=== PATIENT | female | born 1975 | race Caucasian/White ===

== ENCOUNTER 2018-04-06 14:22 | Emergency (ER) | payer OTHER, MEDICAID, SELFPAY ==
[2018-04-06 14:34] VITALS: BP 141/78; PULSE 79; RESP 18; TEMP 36.2; O2SAT 93; BMI 38.5
[2018-04-06] MEDS: predniSONE 20 MG TABLET 60 MG PO (15:11)
[2018-04-06] MEDS: diphenhydrAMINE 25 MG TABLET PO (15:12)
[2018-04-06 15:15] VITALS: PULSE 76; RESP 16; O2SAT 98
[2018-04-06] MEDS: ALBUTEROL 2.5 MG/3 ML NEB (ADULT) INH (15:15)
--- NOTE | 2018-04-06 15:16 | ED_ITS ---
HPI - Allergic Reaction General Chief complaint: Allergic Reaction Stated complaint: states body is on fire,itching,blood in stool Time Seen by Provider: 04/06/18 14:43 Source: patient Mode of arrival: ambulatory Limitations: no limitations History of Present Illness HPI narrative: Patient is a 42-year-old woman who presents with home severe pruritus. She does have a history of sensitive skin but it has been under control for the last 10 years or so. She went to visit [place] 5 days ago she feels like her skin has gotten worse she is in severe itching she has hives all over it is now spreading up to her neck. She denies anything new except possibly hair dye and nail [place]. It is mostly on her arms and throat. She denies hoarse voice no difficulty breathing although she now in the ED feels like she is more short of breath. He has been using her inhaler without relief. MD complaint: allergic reaction Onset (ago): day(s) Related Data Previous Rx's Medication Instructions Recorded hydroxyzine pamoate [Vistaril] 25 mg PO Q6-8H PRN #30 cap 04/06/18 prednisone 40 mg PO DAILY #8 tab 04/06/18 Allergies Allergy/AdvReac Type Severity Reaction Status Date / Time Sulfa (Sulfonamide Allergy Verified 04/06/18 14:34 Antibiotics) Review of Systems Review of Systems GENERAL: Denies chills, fatigue, malaise, fever, sweats, travel HEENT: Denies sinus pain, ear pain, sore throat, difficulty swallowing, neck pain RESPIRATORY: Denies dyspnea, cough, wheezing, hemoptysis, sputum. CARDIOVASCULAR: Denies chest pain, palpitations, orthopnea, edema GASTROINTESTINAL: Denies nausea, vomiting, abdominal pain, diarrhea, constipation, melena. : Denies dysuria, frequency, incontinence, hematuria, urinary retention, flank pain. MUSCULOSKELETAL: Denies weakness, joint pain, or bony pain SKIN: See HPI NEUROLOGIC: Denies weakness, dizziness, headache, numbness, change in speech, confusion PSYCHIATRIC: No concerning psychosocial issues. 12 point review of systems is negative except for those stated above and HPI PFSH Medical History Rash (Acute) Social History Smoking Status: Never smoker Exam Initial Vital Signs Initial Vital Signs: Vital Signs Temperature 97.1 F L 04/06/18 14:34 Pulse Rate 79 04/06/18 14:34 Respiratory Rate 18 04/06/18 14:34 Blood Pressure 141/78 H 04/06/18 14:34 Pulse Oximetry 93 04/06/18 14:34 GENERAL: Overweight female alert and oriented x3 it itching HEENT: Head atraumatic,EOMI, pupils reactive, face symmetric, no stridor no obvious lip or tongue swelling CARDIOVASCULAR: Regular rate and rhythm without murmurs, rubs or gallops. RESPIRATORY: Breath sounds equal bilaterally, no wheezes rales or rhonchi. ABDOMEN: Soft, nontender. Normoactive bowel sounds all 4 quadrants. No guarding or rebound. EXTREMITIES: Normal range of motion, no clubbing or edema. Neurovascularly intact NEUROLOGICAL: Alert and oriented x4. SKIN: Hives diffusely on abdomen and arms no vesicles no petechiae Course Orders Ordered: Discontinued Medications Albuterol (Ventolin) 2.5 mg INH NOW ONE Stop: 04/06/18 15:08 Last Admin: 04/06/18 15:15 Dose: 2.5 mg Diphenhydramine HCl (Benadryl) 25 mg PO NOW ONE Stop: 04/06/18 15:08 Last Admin: 04/06/18 15:12 Dose: 25 mg Prednisone (Deltasone) 60 mg PO NOW ONE Stop: 04/06/18 15:08 Last Admin: 04/06/18 15:11 Dose: 60 mg Vital Signs - 8 hr 04/06/18 14:34 04/06/18 15:15 04/06/18 16:03 Temperature 97.1 F L Pulse Rate 79 76 78 Respiratory Rate 18 16 Blood Pressure 141/78 H Blood Pressure [Right Arm] 116/74 Pulse Oximetry 93 98 98 MDM - Allergic Reaction Lab Data Point of Care Testing Test Results Negative Urine Dip Bedside Urine Glucose Negative Bedside Urine Bilirubin - Negative Bedside Urine Ketone - Negative Urine Specific [place] 1.025 Bedside Urine Occult Blood +/- Bedside Urine pH 6.0 Bedside Urine Protein - Negative Bedside Urine Urobilinogen - Negative Bedside Urine Nitrite - Negative Bedside Urine Leukocytes - Negative Esterase Discharge Plan Departure Patient Disposition: Home Clinical Impression: Allergic reaction Discharge Date/Time: 04/06/18 16:14 Interventions: ED Discharge Assessment Last Done: 04/06/18 16:10 Instructions: DI for General Allergic Reactions Activity Restrictions/Additional Instructions: *You have been diagnosed with allergic reaction *Continue to take medications as directed Prednisone 40 mg once a day for 5 days Vistaril 1-2 tablets every 6 hr if needed for itching Albuterol with spacer every 4-6 hours if needed for difficulty breathing or wheezing *Follow up with your primary care provider in 2-3 days *Return to ER if you should have inability to swallow, worsening rash, or any new, worsening or concerning symptoms Prescriptions: New prednisone 20 mg tablet 40 mg PO DAILY Qty: 8 RF: 0 hydroxyzine pamoate [Vistaril] 25 mg capsule 25 mg PO Q6-8H PRN (Reason: itching) Qty: 30 RF: 0
[2018-04-06 16:03] VITALS: BP 116/74; PULSE 78; O2SAT 98
== END 2018-04-06 16:14 | disposition home or self-care (01) ==
PROVIDERS: Emergency Provider Emergency Medicine
DX: T78.40XA Allergy, unspecified, initial encounter (principal)
CPT/HCPCS: 81003; 81025; 94640; 99282; 99283; J7613

== ENCOUNTER 2019-11-21 23:38 | Emergency (ER) | payer OTHER, MEDICAID, SELFPAY ==
[2019-11-21 23:42] VITALS: BP 123/85; PULSE 82; RESP 18; TEMP 36.8; O2SAT 100
--- NOTE | 2019-11-21 23:49 | ED.ANIMALBIT ---
HPI - Animal Bite General Chief Complaint: Animal Bite Stated Complaint: dog bite left thumb Time Seen by Provider: 11/21/19 23:40 Source: patient Mode of arrival: Ambulatory Limitations: no limitations History of Present Illness HPI narrative: 44F non smoker without contributory medical history presents with a dog bite to her left thumb. Her fully immunized dog has been behaving poorly since she adopted another pup and tonight it bit her on the thumb. She has minimal bleeding and full range of motion. She does have a minimal amount of numbness to to tip of her thumb. She will need a tetanus update. She is otherwise fine and well. MD complaint: animal bite Onset (ago): hour(s) Animal: dog Description of animal: household pet Mechanism: bite Location - Extremities: Left: hand Pain description: sharp Context: provoked Associated symptoms: numbness Treatments prior to arrival: wound dressing(s) Related Data Patient tetanus UTD: No Previous Rx's Medication Instructions Recorded hydroxyzine pamoate [Vistaril] 25 mg PO Q6-8H PRN #30 cap 04/06/18 prednisone 40 mg PO DAILY #8 tab 04/06/18 amoxicillin-pot clavulanate 1 tab PO BID #20 tab 11/22/19 [Augmentin] Allergies Allergy/AdvReac Type Severity Reaction Status Date / Time Sulfa (Sulfonamide Allergy Verified 04/06/18 14:34 Antibiotics) Review of Systems Constitutional Constitutional: Denies chills, Denies fatigue, Denies fever(s), Denies frequent falls, Denies lethargy and Denies weakness Eyes Eyes: Denies change in vision, Denies eye discharge, Denies irritation and Denies loss of vision ENT Ears, Nose, Mouth, and Throat: Denies change in voice, Denies dizziness, Denies neck pain, Denies sore throat and Denies throat swelling Cardiovascular Cardiovascular: Denies chest pain, Denies irregular heart rhythm, Denies lightheadedness, Denies palpitations, Denies dyspnea, Denies dyspnea on exertion and Denies orthopnea Respiratory Respiratory: Denies cough, Denies dyspnea, Denies dyspnea on exertion and Denies wheezing Gastrointestinal Gastrointestinal: Denies abdominal pain, Denies change in bowel habits, Denies diarrhea, Denies nausea and Denies vomiting Genitourinary Genitourinary: Denies hematuria, Denies flank pain, Denies urinary incontinence and Denies urinary urgency Musculoskeletal Musculoskeletal: Denies back pain, Denies muscle weakness, Denies neck pain, Denies numbness and Denies tingling Integumentary/Breasts Skin/Breast: Denies pruritus, Denies erythema, Denies rash and Reports wounds Neurologic Neurologic: Denies behavioral changes, Denies confusion, Denies dizziness, Denies frequent falls, Denies loss of vision, Denies numbness, Denies tingling and Denies weakness Psychiatric Psychiatric: Denies anxiety, Denies behavioral changes, Denies confusion, Denies depression, Denies homicidal ideation and Denies suicidal ideation Endocrine Endocrine: Denies fatigue, Denies flushing and Denies palpitations Hematologic/Lymphatic Hematologic/Lymphatic: Denies easy bruising Allergic/Immunologic Allergic/Immunologic: Denies urticaria, Denies throat swelling and Denies wheezing Patient History Medical History Rash (Acute) Social History Smoking Status: Never smoker Smoking Status: Never smoker alcohol intake frequency: 0-2 drinks per day Substance Use Type: does not use Exam Narrative Exam Narrative: GEN: AOx3 and in mild distress EYES: Pupils are equal, round, and reactive to light and accommodation. Extraoccular muscles are intact bilaterally. There is no subconjunctival hemorrhage or exudate. CHEST: Lungs are clear to auscultation bilaterally and free of wheezes, rales, or rhonchi. Heart rate is regular rhythm, there are no murmurs, clicks, rubs, or gallops. There is no chest wall tenderness. ABD: Abdomen is soft and nontender. There is no guarding or rebound. Bowel sounds are normal in all 4 quadrants. There is no mass or organomegaly. EXT: small puncture on volar side of Left thumb with no active bleeding. Full strength, no active bleeding. No foreign body. No nail / nailbed involvement. SKIN: Warm, pink, and dry. No erythema or rash Initial Vital Signs Initial Vital Signs: Vital Signs Temperature 98.3 F 11/21/19 23:42 Pulse Rate 82 11/21/19 23:42 Respiratory Rate 18 11/21/19 23:42 Blood Pressure 123/85 11/21/19 23:42 Pulse Oximetry 100 11/21/19 23:42 Course Orders Ordered: ED Orders 11/21/19 23:55 XR finger LT min 2V Stat Discontinued Medications Amoxicillin/Clavulanate Potassium (Augmentin 875-125 Mg) 1 tab PO NOW ONE Stop: 11/22/19 00:35 Last Admin: 11/22/19 00:38 Dose: 1 tab Documented by: SANAM Diphtheria/Tetanus/Acell Pertussis (Adacel) 0.5 ml IM .ONCE ONE Stop: 11/21/19 23:56 Last Admin: 11/22/19 00:03 Dose: 0.5 ml Documented by: DELGADO Lidocaine/Sodium Bicarbonate (Buffered Lidocaine 10 Ml Syr) 10 ml INJ NOW ONE Stop: 11/21/19 23:56 Last Admin: 11/22/19 00:35 Dose: 10 ml Documented by: SANAM Vital Signs Vital signs: Vital Signs - 8 hr 11/21/19 23:42 Temperature 98.3 F Pulse Rate 82 Respiratory Rate 18 Blood Pressure 123/85 Pulse Oximetry 100 [facility] - Animal Bite Imaging Data Extremity x-ray #1: Attestation: I personally reviewed and interpreted this imaging study as follows: My Impression: No fx, FB Discharge Plan Departure Patient Disposition: Home Clinical Impression: Bite by animal Discharge Date/Time: 11/22/19 00:46 Instructions: DI for Animal Bites Activity Restrictions/Additional Instructions: *You have been diagnosed with [dog bite left thumb] *What to do: *Take medications as directed *Follow up with your primary care provider in 2-3 days, call for an appointment. Let them know you were seen in the Emergency Department and that we ask that you be seen in follow up *Return to ER if you should have any new, worsening or concerning symptoms, such as [worsening pain, redness, swelling] Prescriptions: New amoxicillin-pot clavulanate [Augmentin] 875-125 mg tablet 1 tab PO BID Qty: 20 RF: 0 No Action prednisone 20 mg tablet 40 mg PO DAILY Qty: 8 RF: 0 hydroxyzine pamoate [Vistaril] 25 mg capsule 25 mg PO Q6-8H PRN (Reason: itching) Qty: 30 RF: 0 Referrals: Eyal Raphael DO [Primary Care Provider] -
--- NOTE | 2019-11-21 23:55 | DI.RAD.S_ITS ---
PROCEDURE: XR FINGER LT MIN 2V INDICATIONS: dog bite TECHNIQUE: AP hand, 2 views of the left first finger(s) acquired. COMPARISON: None. FINDINGS: Bones: No fractures or dislocations. No suspicious bony lesions. Soft tissues: No suspicious soft tissue calcifications. IMPRESSION: No fracture. No osseous lesion. If symptoms and/or clinical suspicion for pathology persists, further assessment with repeat radiographs (7-10 days) or advanced imaging (e.g. CT, MRI or bone scan) may be helpful. Dictated by: Chen Longoria MD, PhD on 11/22/2019 at 7:51 Approved by: Chen Longoria MD, PhD on 11/22/2019 at 7:52
[2019-11-22] MEDS: TET,DIPH,PERTUSS(ACELL),VAC/PF 0.5 ML SYRINGE IM (00:03)
[2019-11-22] MEDS: LIDO 1%/SOD BICARB 8.4% (10ML) 10 ML SYRINGE INJ (00:35)
[2019-11-22] MEDS: AMOXICILLIN/CLAV 875/125 MG 1 TAB PO (00:38)
== END 2019-11-22 00:46 | disposition home or self-care (01) ==
PROVIDERS: Emergency Provider Emergency Medicine; PCP Family Medicine
DX: S61.052A Open bite of left thumb without damage to nail, initial encounter (principal); W54.0XXA Bitten by dog, initial encounter; Z23 Encounter for immunization
CPT/HCPCS: 73140; 90471; 99283; 99284; 90715

== ENCOUNTER → 2019-12-14 10:43 | Outpatient (CLI) | payer OTHER, MEDICAID, SELFPAY ==
--- NOTE | 2019-12-14 10:45 | DI.RAD.S_ITS ---
PROCEDURE: XR ELBOW RT MIN 3V INDICATIONS: elbow injury TECHNIQUE: 3 views of the elbow were acquired. COMPARISON: None. FINDINGS: Bones: No fractures or dislocations. No suspicious bony lesions. Soft tissues: No elbow joint effusion. No suspicious soft tissue calcifications. IMPRESSION: No displaced fractures are seen on these plain films. If there is focal tenderness, or other clinical concern for a fracture not seen on these images in this patient with a given history of trauma, please consider a dedicated CT or a short-term followup plain film series (in 1-2 weeks) for further evaluation. Dictated by: Jomar Pak M.D. on 12/14/2019 at 12:06 Approved by: Jomar Pak M.D. on 12/14/2019 at 12:06
== END ==
PROVIDERS: PCP Family Medicine; Referring Provider Family Medicine; Visit Provider Family Medicine
DX: S59.901A Unspecified injury of right elbow, initial encounter (principal); M25.521 Pain in right elbow; X58.XXXA Exposure to other specified factors, initial encounter
CPT/HCPCS: 73080

== ENCOUNTER 2020-01-31 19:26 | Emergency (ER) | payer OTHER, MEDICAID, SELFPAY ==
[2020-01-31 19:33] VITALS: BP 117/70; PULSE 90; RESP 20; TEMP 36.1; O2SAT 100
[2020-01-31 19:34] VITALS: PULSE 90; O2SAT 100
--- NOTE | 2020-01-31 19:41 | ED_ITS ---
HPI - Asthma <Eboni Stroud, [employer] - Last Filed: 01/31/20 20:43> General Chief Complaint: Asthma Stated Complaint: SOB Time Seen by Provider: 01/31/20 19:32 Source: patient Mode of arrival: Ambulatory Limitations: no limitations History of Present Illness HPI Narrative: The patient is a 44-year-old female with history of asthma who presents for chief complaint of an asthma flare. She states she has been getting worse for the past several weeks, but then doing yard work release set off her wheezing yesterday. She states she has been using her inhaler about 6 times today. She does not use a spacer. She also uses Singulair and Advair. She denies any fevers or sore throat. She states she has a dry cough when she gets very tight. Denies any abdominal pain nausea vomiting or diarrhea. She states that she was working hard doing yard work pulling weeds etcetera yesterday when her breathing got worse. She has an appointment with the respiratory clinic tomorrow, but felt worse so she came to the emergency department today. She is speaking full sentences wall laying reclined on her stretcher. Related Data Home Medications Medication Instructions Recorded Confirmed acetaminophen 500 mg tablet 1,000 mg PO QID PRN 12/27/19 01/07/20 dextroamphetamine-amphetamine ER 30 mg PO DAILY 01/01/20 01/07/20 30 mg 24hr capsule,extend release levonorgestrel 20 mcg/24 hours (5 INTRAUTERINE 01/01/20 01/07/20 yrs) 52 mg intrauterine device Previous Rx's Medication Instructions Recorded acyclovir 400 mg tablet 400 mg PO DAILY #90 tab 01/01/20 albuterol sulfate 90 mcg/actuation 2 puff INHALATION Q4-6H PRN #18 01/01/20 aerosol inhaler gram montelukast 10 mg tablet 10 mg PO BEDTIME #90 tab 01/01/20 gabapentin 100 mg capsule 100 mg PO BEDTIME #90 cap 01/07/20 fluticasone 250 mcg-salmeterol 50 1 inhalation INHALATION BID #60 01/31/20 mcg/dose blistr powdr for each inhalation prednisone 40 mg PO DAILY 5 Days #10 tab 01/31/20 Allergies Allergy/AdvReac Type Severity Reaction Status Date / Time Sulfa (Sulfonamide Allergy Verified 01/07/20 10:31 Antibiotics) Review of Systems <TRA Gamez - Last Filed: 01/31/20 20:43> Review of Systems Narrative: GENERAL: Denies chills, fatigue, malaise, fever, sweats. HEENT: Denies sinus pain, ear pain, sore throat, difficulty swallowing, diz ziness. RESPIRATORY: See HPI CARDIOVASCULAR: Denies chest pain, palpitations, orthopnea, edema, GASTROINTESTINAL: Denies nausea, vomiting, abdominal pain, diarrhea, constipation, melena. : Denies dysuria, frequency, incontinence, hematuria, urinary retention. MUSCULOSKELETAL: denies weakness, joint pain, or bony pain SKIN: Denies rash, skin lesions, or other NEUROLOGIC: Denies weakness, headache, numbness, change in speech, confusion, seizures, incoordination. PSYCHIATRIC: No concerning psychosocial issues. 12 point review of systems is negative except for those stated above Patient History <TRA Gamez - Last Filed: 01/31/20 20:43> Medical History ADHD (Acute) Breast mass in female (Acute) Chronic back pain (Acute) Morbid obesity with BMI of 40.0-44.9, adult (Acute) Preventative health care (Acute) Rash (Acute) Right elbow pain (Acute) Right knee pain (Acute) Right shoulder pain (Acute) Well woman exam (Acute) Social History Smoking Status: Never smoker Smoking Status: Never smoker alcohol intake frequency: 0-2 drinks per day Substance Use Type: does not use Exam <TRA Gamez - Last Filed: 01/31/20 20:43> Narrative Exam Narrative: GENERAL: This is a well-nourished, well-developed patient, no acute distress HEAD: Atraumatic. Normocephalic. No temporal or scalp tenderness. EYES: Pupils equal round and reactive. Extraocular motions intact. No scleral icterus. No injection or drainage. ENT: Nose without bleeding, purulent drainage or septal hematoma.. Airway patent. NECK: Trachea midline. No JVD or lymphadenopathy. Supple, nontender, no meningeal signs. CARDIOVASCULAR: Regular rate and rhythm RESPIRATORY: slight diffuse wheeze bilateral posterior to auscultation. Breath sounds equal bilaterally. No rales, no rhonchi, no crackles. Speaking full sentences. Lying on stretcher. No accessory muscle use. GASTROINTESTINAL: Abdomen soft, non-tender, nondistended. No hepato-spl enomegaly, or palpable masses. No guarding. NEURO: AOx3. SKIN: No rash or erythema on visible skin Initial Vital Signs Initial Vital Signs: Vital Signs Temperature 97 F L 01/31/20 19:33 Pulse Rate 90 01/31/20 19:33 Respiratory Rate 01/31/20 19:33 Blood Pressure 117/70 01/31/20 19:33 Pulse Oximetry 100 01/31/20 19:33 <Marco Paredes MD - Last Filed: 02/01/20 00:29> Initial Vital Signs Initial Vital Signs: Vital Signs Temperature 97 F L 01/31/20 19:33 Pulse Rate 90 01/31/20 19:33 Respiratory Rate 01/31/20 19:33 Blood Pressure 117/70 01/31/20 19:33 Pulse Oximetry 100 01/31/20 19:33 Scores <TRA Gamez - Last Filed: 01/31/20 20:43> GCS [place] coma scale eye opening: Spontaneous Jemima coma scale verbal response: Orientated Jemima coma scale motor response: Obey commands [place] coma scale total score: 15 Course <TRA Gamez - Last Filed: 01/31/20 20:43> Orders Ordered: ED Orders 01/31/20 19:40 XR chest 2V Stat RT Consult Eval and Treat NOW Discontinued Medications Albuterol (Ventolin) 2.5 mg INH NOW ONE Stop: 01/31/20 19:53 Last Admin: 01/31/20 19:54 Dose: 2.5 mg Documented by: LONNIE Albuterol/Ipratropium (Duoneb) 3 ml INH NOW ONE Stop: 01/31/20 19:53 Last Admin: 01/31/20 19:54 Dose: 3 ml Documented by: LONNIE Prednisone (Deltasone) 40 mg PO NOW ONE Stop: 01/31/20 20:28 Last Admin: 01/31/20 20:32 Dose: 40 mg Documented by: CALI Vital Signs Vital signs: Vital Signs - 8 hr 01/31/20 19:33 01/31/20 19:34 01/31/20 19:53 Temperature 97 F L Pulse Rate 90 90 89 Respiratory Rate 20 18 Blood Pressure 117/70 Pulse Oximetry 100 100 100 01/31/20 20:49 01/31/20 20:50 Temperature Pulse Rate 86 84 Respiratory Rate Blood Pressure 122/56 L Pulse Oximetry 100 100 <Marco Paredes MD - Last Filed: 02/01/20 00:29> Orders Ordered: ED Orders 01/31/20 19:40 XR chest 2V Stat RT Consult Eval and Treat NOW Discontinued Medications Albuterol (Ventolin) 2.5 mg INH NOW ONE Stop: 01/31/20 19:53 Last Admin: 01/31/20 19:54 Dose: 2.5 mg Documented by: LONNIE Albuterol/Ipratropium (Duoneb) 3 ml INH NOW ONE Stop: 01/31/20 19:53 Last Admin: 01/31/20 19:54 Dose: 3 ml Documented by: LONNIE Prednisone (Deltasone) 40 mg PO NOW ONE Stop: 01/31/20 20:28 Last Admin: 01/31/20 20:32 Dose: 40 mg Documented by: CALI Vital Signs Vital signs: Vital Signs - 8 hr 01/31/20 19:33 01/31/20 19:34 01/31/20 19:53 Temperature 97 F L Pulse Rate 90 90 89 Respiratory Rate 20 18 Blood Pressure 117/70 Pulse Oximetry 100 100 100 01/31/20 20:49 01/31/20 20:50 Temperature Pulse Rate 86 84 Respiratory Rate Blood Pressure 122/56 L Pulse Oximetry 100 100 MDM - Asthma <TRA Gamez - Last Filed: 01/31/20 20:43> Imaging Data Chest x-ray: Radiologist's Impression: [address] [address] XRay Report Signed Patient: Marija Novak#: [id number] : 1975Acct:[id number] Age/Sex: 44 / FDate of Service: 01/31/20 Loc: ED Accession Number: [id number] Procedure: XR chest 2V Ordering Provider: Eboni Stroud PROCEDURE: XR CHEST 2V INDICATIONS: sob, asthma TECHNIQUE: 2 views of the chest were acquired. COMPARISON: None. FINDINGS: Surgical changes and devices: None. Lungs and pleura: Lungs are clear. No pleural effusions or pneumothorax. Mediastinum: Mediastinal contours are normal. Heart size is normal. Bones and chest wall: No suspicious bony abnormalities. Soft tissues appear unremarkable. IMPRESSION: No acute cardiopulmonary pathology. Dictated by: Faraz Mcintyre M.D. on 01/31/2020 at 20:27 Approved by: Faraz Mcintyre M.D. on 01/31/2020 at 20:29 [facility] Narrative Medical decision making narrative: The patient is a 44-year-old female who presents with a chief complaint of an asthma exacerbation. She is hemodynamically stable, oxygenating well, speaking full sentences well lying back on her stretcher. She has not been using a spacer, so she received spacer teaching as well as an RT evaluation in the emergency department. She states she has a nebulizer at home with ampules, but has not used it. She has never be en intubated or admitted due to her asthma. I gave her a burst of steroids. X- ray had no acute findings. Have low suspicion of covid for this patient as she is afebrile, has no cough, felt wheezy after doing yd work when she has environmental allergies. However given her risk factors, will test her. Discussed that results take 1-2 days to result. Encouraged follow-up with primary care provider in the next few days. Discussed coming back to the emergency department for any acute concerns. Patient has no questions or concerns upon discharge and states understanding of return precautions as well as follow-up care. Discharge Plan Departure Patient Disposition: Home Clinical Impression: Asthma with acute exacerbation Qualifiers: Asthma severity: unspecified severity Asthma persistence: unspecified Qualified Code(s): J45.901 - Unspecified asthma with (acute) exacerbation Discharge Date/Time: 01/31/20 21:17 Instructions: How to Use a Metered-Dose Inhaler, DI for Asthma -- Adult, Coronavirus Disease 2019, Can COVID-19 be prevented? Activity Restrictions/Additional Instructions: Thank you for trusting us with your care today Your x-ray shows no acute findings such as pneumonia. We have elected to treat your asthma flare was steroids. I sent a prescription to [facility] in [place]. You can feel this tomorrow. Please use your inhaler every 4-6 hours as needed with spacer You can also use your nebulizer every 4-6 hours as needed Please come back to the emergency department for any acute concerns Please follow-up with primary care provider in the next few days. We will call you with results of your coronavirus testing in the next day or 2. We call if it is positive or negative. Prescriptions: New prednisone 20 mg tablet 40 mg PO DAILY 5 Days Qty: 10 RF: 0 No Action fluticasone propion-salmeterol [Advair Diskus] 250-50 mcg/dose blister with device 1 inhalation INHALATION BID Qty: 60 RF: 11 acetaminophen [Tylenol Extra Strength] 500 mg tablet 1,000 mg PO QID PRNRF: 0 acyclovir 400 mg tablet 400 mg PO DAILY Qty: 90 RF: 3 montelukast 10 mg tablet 10 mg PO BEDTIME Qty: 90 RF: 3 dextroamphetamine-amphetamine 30 mg capsule,extended release 24hr 30 mg PO DAILY RF: 0 albuterol sulfate [ProAir HFA] 90 mcg/actuation HFA aerosol inhaler 2 puff INHALATION Q4-6H PRN (Reason: shortness of breath or wheezing) Qty: 18 RF: 11 levonorgestrel 20 mcg/24 hours (5 yrs) 52 mg intrauterine device intrauterine RF: 0 gabapentin 100 mg capsule 100 mg PO BEDTIME Qty: 90 RF: 1 Referrals: Xiao Navarro ARNP [Primary Care Provider] - <Marco Paredes MD - Last Filed: 02/01/20 00:29> [facility] ED Attending [facility] Attestation: I was immediately available in the department for consultation. This documentation has been reviewed and I agree with assessment and plan. Supervised by Marco Paredes MD
--- NOTE | 2020-01-31 19:46 | PC.NURSE ---
RT currently in room.
[2020-01-31 19:53] VITALS: PULSE 89; RESP 18; O2SAT 100
[2020-01-31] MEDS: ALBUTEROL 2.5 MG/3 ML NEB (ADULT) INH (19:54)
[2020-01-31] MEDS: ALBUTEROL/IPRATROPIUM 3 ML AMPUL INH (19:54)
[2020-01-31] MEDS: predniSONE 20 MG TABLET 40 MG PO (20:32)
[2020-01-31 20:49] VITALS: PULSE 86; O2SAT 100
[2020-01-31 20:50] VITALS: BP 122/56; PULSE 84; O2SAT 100
[2020-02-04 22:11] LABS: COVID19 Sendout Not Detected (Not Detected)
== END 2020-01-31 21:17 | disposition home or self-care (01) ==
PROVIDERS: Emergency Provider Nurse Practitioner Family; PCP Nurse Practitioner
DX: J45.901 Unspecified asthma with (acute) exacerbation (principal); Z03.818 Encounter for observation for suspected exposure to other biological agents ruled out
CPT/HCPCS: 71046; 87635; 94640; 99284; J7613

== ENCOUNTER → 2020-02-05 14:17 | Outpatient (CLI) | payer OTHER, MEDICAID, SELFPAY ==
--- NOTE | 2020-02-05 14:18 | DI.CT.S_ITS ---
PROCEDURE: CT UE RT WO CON INDICATIONS: RUE injury, ongoing pain TECHNIQUE: Noncontrast 1-1.5 mm axial sections were acquired through the elbow joint, with coronal and sagittal reformats. COMPARISON: [facility], CR, XR ELBOW RT MIN 3V, 12/14/2019, 10:42. FINDINGS: Image quality: Excellent. Bones: Elbow alignment is anatomic. There is no acute elbow fracture or dislocation. No signs of healing fracture. No periosteal reaction or callus formation. There is no suspicious intraosseous lesion. 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 Soft tissues: There is no elbow joint effusion. No soft tissue mass or fluid distension of the olecranon bursa. No gross full-thickness elbow tendon rupture. IMPRESSION: No CT finding to explain patient's symptoms. No elbow fracture or dislocation. If indicated, MRI of the elbow can be done for evaluation of internal derangement. Dictated by: Faraz Mcintyre M.D. on 02/05/2020 at 16:12 Approved by: Faraz Mcintyre M.D. on 02/05/2020 at 16:14
--- NOTE | 2020-02-05 14:18 | DI.MG.S_ITS ---
BILATERAL DIGITAL DIAGNOSTIC MAMMOGRAM 3D/2D: 02/05/2020 CLINICAL: Baseline exam. Right breast mass. No prior exams were available for comparison. The tissue of both breasts is heterogeneously dense. This may lower the sensitivity of mammography. No discrete cystic or solid mass lesion identified in the area of palpable abnormality. No significant masses, calcifications, or other findings are seen in either breast. IMPRESSION: INCOMPLETE: NEEDS ADDITIONAL IMAGING EVALUATION There are no abnormalities seen in the right breast to correspond with the palpable abnormalities at 8-9 o'clock, however, ultrasound is recommended. Ultrasound will be performed immediately following the current exam. This exam was interpreted at Station ID: [id number]. NOTE: For mammograms, a report in lay terms will be sent to the patient. Approximately 15% of breast malignancies will not be visualized mammographically. In the management of a palpable breast mass, a negative mammogram must not discourage biopsy of a clinically suspicious lesion. Electronically Signed By: Jameson Hills M.D. ddp/:02/05/2020 14:59:22 ACR BI-RADS Category 0: Incomplete 3340F
--- NOTE | 2020-02-05 14:18 | DI.US.S_ITS ---
LIMITED ULTRASOUND OF RIGHT BREAST: 02/05/2020 CLINICAL: Palpable right breast lump. Palpable right breast lump by physician. Comparison is made to exam dated: 02/05/2020 mammogram - [facility]. Color flow and real-time ultrasound of the right breast lower outer quadrant were performed on the areas of interest. There is a 0.7 cm x 0.4 cm x 0.6 cm oval cyst with a septated internal wall in the right breast at 7 o'clock anterior depth. This oval cyst is hypoechoic with a well-defined boundary, internal echoes, and posterior acoustic enhancement. Color flow imaging demonstrates that there is no vascularity present. This may correlate with the palpable abnormality. IMPRESSION: PROBABLY BENIGN The 0.7 cm x 0.4 cm x 0.6 cm oval cyst in the right breast is consistent with a complicated cyst and is probably benign. A follow-up ultrasound in 6 months is recommended. Clinical followup is recommended for palpable abnormality. A follow-up ultrasound in 6 months is recommended to demonstrate stability. This exam was interpreted at Station ID: [id number]. Electronically Signed By: Jameson garcia/:02/05/2020 16:08:26 letter sent: Followup Recommended Ultrasound BI-RADS: 3 Probably benign
== END ==
PROVIDERS: PCP Nurse Practitioner; Referring Provider Nurse Practitioner Family; Visit Provider Nurse Practitioner Family
DX: R92.8 Other abnormal and inconclusive findings on diagnostic imaging of breast (principal); N60.01 Solitary cyst of right breast; M25.521 Pain in right elbow
CPT/HCPCS: 73200; 76642; 77066; G0279

== ENCOUNTER → 2020-06-13 11:05 | Outpatient (CLI) | payer OTHER, MEDICAID, SELFPAY ==
--- NOTE | 2020-06-13 11:08 | DI.RAD.S_ITS ---
PROCEDURE: XR KNEE RT 3V INDICATIONS: knee pain, swelling worse on right TECHNIQUE: 3 views of the knee were acquired. COMPARISON: None. FINDINGS: Bones: No fractures or dislocations. No suspicious bony lesions. Soft tissues: There is a mild joint effusion. No suspicious soft tissue calcifications. IMPRESSION: Mild joint effusion. Normal appearing bones. If there is strong clinical suspicion for internal derangement of the knee, please consider a dedicated MRI for further evaluation (assuming that there is no contraindication to MRI). Dictated by: Jomar Pak M.D. on 06/13/2020 at 11:11 Approved by: Jomar Pak M.D. on 06/13/2020 at 11:11
== END ==
PROVIDERS: PCP Nurse Practitioner; Referring Provider Nurse Practitioner Family; Visit Provider Nurse Practitioner Family
DX: M25.461 Effusion, right knee (principal)
CPT/HCPCS: 73562

== ENCOUNTER → 2020-08-11 10:49 | Outpatient (CLI) | payer OTHER, MEDICAID, SELFPAY ==
--- NOTE | 2020-08-11 10:50 | DI.US.S_ITS ---
LIMITED ULTRASOUND OF RIGHT BREAST AND AXILLA: 08/11/2020 CLINICAL: Patient returns for a 6 month follow up of the right breast. No prior exams were available for comparison. Color flow and real-time ultrasound of the right breast 8 o'clock, and axilla regions were performed. Hwang scale images of the real-time examination were reviewed. Redemonstration of previously described 0.7 cm x 0.6 cm x 0.4 cm oval cyst with septated internal loaiza in the right breast at 7 o'clock anterior depth 8 cm from the nipple. This oval cyst is hypoechoic with a well-defined boundary, internal echoes, and posterior acoustic enhancement. This abnormality is not significantly changed and correlates as previously palpated area of concern but was not seen on the prior mammogram. Color flow imaging demonstrates that there is no vascularity present. No significant abnormalities were seen sonographically in the right axilla. IMPRESSION: PROBABLY BENIGN The stable 0.7 cm x 0.6 cm x 0.4 cm oval cyst in the right breast is consistent with a complicated cyst and is probably benign. A follow-up right mammogram and a right ultrasound in 6 months is recommended to demonstrate stability. The patient will also be due for screening mammogram of the contralateral breast at that time. Findings and recommendations were conveyed to the patient during today's evaluation. This exam was interpreted at Station ID: [id number]. Electronically Signed By: Efra Guillen M.D. aty/:08/11/2020 11:37:23 letter sent: Followup Recommended Ultrasound BI-RADS: 3 Probably benign
== END ==
PROVIDERS: PCP Nurse Practitioner; Referring Provider Nurse Practitioner; Visit Provider Nurse Practitioner
DX: R92.8 Other abnormal and inconclusive findings on diagnostic imaging of breast (principal); N60.01 Solitary cyst of right breast
CPT/HCPCS: 76642

== ENCOUNTER → 2021-02-19 13:24 | Outpatient (CLI) | payer OTHER, MEDICAID, SELFPAY ==
--- NOTE | 2021-02-19 13:25 | DI.MG.S_ITS ---
BILATERAL DIGITAL DIAGNOSTIC MAMMOGRAM 3D/2D SHORT-TERM FOLLOW-UP: 02/19/2021 CLINICAL: Short term follow up of the right breast, due for bilateral imaging. Comparison is made to exams dated: 08/11/2020 ultrasound, 02/05/2020 ultrasound, and 02/05/2020 mammogram - [facility]. The tissue of both breasts is heterogeneously dense. This may lower the sensitivity of mammography. No significant masses, calcifications, or other findings are seen in either breast. IMPRESSION: INCOMPLETE: NEEDS ADDITIONAL IMAGING EVALUATION There is no definite mammographic abnormality seen in the right breast to correspond with the ultrasound finding at 7 o'clock, however, ultrasound is recommended for followup of the previously visualized cyst. Ultrasound will be performed immediately following the current exam. This exam was interpreted at Station ID: [id number]. NOTE: For mammograms, a report in lay terms will be sent to the patient. Approximately 15% of breast malignancies will not be visualized mammographically. In the management of a palpable breast mass, a negative mammogram must not discourage biopsy of a clinically suspicious lesion. Electronically Signed By: Jameson Hills M.D. ddethan/:02/19/2021 14:03:36 ACR BI-RADS Category 0: Incomplete 3340F
--- NOTE | 2021-02-19 13:25 | DI.US.S_ITS ---
LIMITED ULTRASOUND OF RIGHT BREAST: 02/19/2021 CLINICAL: 6 month follow-up of cysts. Comparison is made to exams dated: 02/19/2021 mammogram, 08/11/2020 ultrasound, 02/05/2020 ultrasound, and 02/05/2020 mammogram - [facility]. Color flow and real-time ultrasound of the right breast 7 o'clock region were performed on the areas of interest. There is a stable 0.6 cm x 0.3 cm x 0.4 cm oval cyst with a septated internal wall in the right breast at 7 o'clock anterior depth. This oval cyst is hypoechoic with internal echoes and posterior acoustic enhancement. Color flow imaging demonstrates that there is no vascularity present. IMPRESSION: PROBABLY BENIGN The stable 0.6 cm x 0.3 cm x 0.4 cm oval cyst in the right breast is consistent with a complicated cyst and is probably benign. Findings are stable compared to prior studies dating back ton 02/05/20. A follow-up mammogram and an ultrasound in 12 months are recommended to demonstrate 2 year stability. This exam was interpreted at Station ID: [id number]. Electronically Signed By: Jameson Hills M.D. ddethan/:02/19/2021 14:22:10 letter sent: Followup Recommended Ultrasound BI-RADS: 3 Probably benign
== END ==
PROVIDERS: PCP Nurse Practitioner; Referring Provider Nurse Practitioner; Visit Provider Nurse Practitioner
DX: R92.8 Other abnormal and inconclusive findings on diagnostic imaging of breast (principal); N60.01 Solitary cyst of right breast
CPT/HCPCS: 76642; 77066; G0279

== ENCOUNTER 2021-06-22 19:27 | Emergency (ER) | payer OTHER, MEDICAID, SELFPAY ==
[2021-06-22 19:40] VITALS: BP 138/61; PULSE 85; RESP 22; TEMP 37.2; O2SAT 100
[2021-06-22 20:11] LABS: Pregnancy Test Urine Negative (Negative)
[2021-06-22 20:18] LABS: Bacteria Urine None Seen; Culture Indicated Urine Cult Not Indicated; RBC Urine 0-1/HPF (0-5/HPF); Squamous Epithelial Cell Urine 0-1 /HPF (0-5/HPF); WBC Urine 0-1/HPF (0-5/HPF)
== END 2021-06-23 01:10 | disposition left against medical advice (07) ==
PROVIDERS: Emergency Provider Emergency Medicine; PCP Nurse Practitioner
DX: Z53.21 Procedure and treatment not carried out due to patient leaving prior to being seen by health care provider (principal)
CPT/HCPCS: 81003; 81015; 81025; 99281

== ENCOUNTER 2021-09-13 06:20 | Emergency (ER) | payer OTHER, MEDICAID, SELFPAY ==
[2021-09-13 06:42] VITALS: BP 156/68; PULSE 103; RESP 18; TEMP 36.6; O2SAT 100; BMI 37.5
--- NOTE | 2021-09-13 07:30 | ED_ITS ---
HPI - Skin/Abscess/Foreign Bdy General Chief complaint: Urogenital-Female Stated complaint: itchy/painful rash/body/privates/std?? Time Seen by Provider: 09/13/21 07:25 Source: patient Mode of arrival: Ambulatory Limitations: no limitations History of Present Illness HPI narrative: This is a 45-year-old female who has an itchy painful rash on right neck and chest that started been followed by her right groin and buttock region. Patient states she is sexually active. She states that she is aware of infidelity with her significant other. Patient states she has had itching after sexual activity frequently but it is significantly worse and extreme today. Patient states that she has had 7 days of symptoms. She states she has had hives before but nothing that looks like this. She did notice some small blisters. Patient has not had fevers or chills. No chest pain or shortness of breath. No nausea or vomiting. No diarrhea constipation. She has had some dysuria with urination but states the vaginal area is very irritated. She has not appreciate any new vaginal discharge or bleeding. She has been trying Benadryl, topical hydrocortisone, triamcinolone, 3 days of oral prednisone she had left over, tacrolimus topically without improvement. Patient is concern for STDs. She has an IUD history of bariatric surgery. She has allergies to sulfa. Xiao butts is her primary care provider. Related Data Home Medications Medication Instructions Recorded Confirmed acetaminophen 500 mg tablet 1,000 mg PO QID PRN 12/27/19 06/12/21 (Tylenol Extra Strength) dextroamphetamine-amphetamine ER 30 mg PO DAILY 01/01/20 06/12/21 30 mg 24hr capsule,extend release levonorgestrel 20 mcg/24 hours (7 INTRAUTERINE 01/01/20 06/12/21 yrs) 52 mg intrauterine device omeprazole 20 mg capsule,delayed 20 mg PO BID 03/20/20 06/12/21 release guanfacine 1 mg tablet 1 mg PO BEDTIME 11/20/20 06/12/21 lamotrigine 200 mg tablet 200 mg PO DAILY 05/27/21 06/12/21 Previous Rx's Medication Instructions Recorded fluticasone 250 mcg-salmeterol 50 1 inhalation INHALATION BID #60 01/31/20 mcg/dose blistr powdr for each inhalation (Advair Diskus) montelukast 10 mg tablet 10 mg PO BEDTIME #90 tab 01/21/21 gabapentin 300 mg capsule See Rx Instructions PO TID #360 cap 01/22/21 acyclovir 400 mg tablet 400 mg PO DAILY #90 tab 01/27/21 ADA Grab Bars for bathroom #1 ea 02/10/21 ADA Raised toilet seat #1 ea 02/10/21 ADA shower chair #1 ea 02/10/21 walker #1 ea 02/10/21 Single Point Cane #1 ea 02/11/21 Two Wheel Walker #1 ea 02/11/21 meloxicam 15 mg tablet 15 mg PO DAILY #90 tab 05/04/21 low dose naltrexone 4.5 mg PO .HS #90 tab 05/06/21 albuterol sulfate 90 mcg/actuation See Rx Instructions .ROUTE 09/09/21 aerosol inhaler .COMPLEX #8.5 g lidocaine 4 % topical cream 1 applic TOPICAL QID PRN #15 g 09/13/21 prednisone 20 mg tablet 40 mg PO DAILY #10 tab 09/13/21 Allergies Allergy/AdvReac Type Severity Reaction Status Date / Time Sulfa (Sulfonamide Allergy Verified 01/13/21 11:13 Antibiotics) Review of Systems Review of Systems ROS Unobtainable: All systems reviewed & are unremarkable except as noted in HPI and below Patient History Medical History ADHD Breast mass in female Chronic back pain IUD (intrauterine device) in place Morbid obesity with BMI of 40.0-44.9, adult Painful menstrual periods Preventative health care Rash Right elbow pain Right knee pain Right shoulder pain Well woman exam Social History Smoking Status: Never smoker Smoking Status: Never smoker alcohol intake frequency: 0-2 drinks per day Substance Use Type: does not use Exam Narrative Exam Narrative: GENERAL: Alert and oriented x three, female in [id number] distress. HEENT: Head normocephalic, atraumatic, EOMI, pupils reactive, face symmetric, moist mucous membranes NECK: Supple, full range of motion CARDIOVASCULAR: Regular rate and rhythm without murmurs, rubs or gallops. RESPIRATORY: Breath sounds equal bilaterally, no wheezes rales or rhonchi. ABDOMEN: Soft, nontender. Normoactive bowel sounds all 4 quadrants. No guarding or rebound, rigidity, no mass : No CVA tenderness. Female: external vaginal exam shows erythema but no vesicles or lesions. No vaginal bleeding, no discharge, no cervical motion tenderness, I used the strings are in place. Normal speculum exam, no adnexal tenderness/mass. Bimanual exam is normal, no enlarged or tender uterus. Non- gravid. EXTREMITIES: Normal range of motion, no clubbing or edema. Neurovascularly intact NEUROLOGICAL: Cranial nerves II through XII grossly intact. Moving all ext remities SKIN: Warm, dry, no petechiae, patient has an erythematous macular rash that is slightly raised on her right anterior chest radiating to she has some very small blisters that appear to have dried. Patient also has some erythema in the gluteal cleft. Initial Vital Signs Initial Vital Signs: Vital Signs Temperature 98 F 09/13/21 06:42 Pulse Rate 103 H 09/13/21 06:42 Respiratory Rate 18 09/13/21 06:42 Blood Pressure 156/68 H 09/13/21 06:42 Pulse Oximetry 100 09/13/21 06:42 Course Orders Ordered: ED Orders 09/13/21 07:32 Urine Microscopic Stat 09/13/21 08:13 Chlamydia/Gonoc/Myco Genital Stat Wet Prep Tric BV Rosa Stat 09/13/21 08:35 Herpes Simp Virus 1&2 IgG Stat 09/13/21 09:35 Genital Culture Stat Discontinued Medications Azithromycin (Azithromycin 250 Mg Tablet) 1,000 mg PO NOW ONE Stop: 09/13/21 08:21 Last Admin: 09/13/21 08:34 Dose: 1,000 mg Documented by: GARDENIA Ceftriaxone Sodium (Ceftriaxone 500 Mg Vial) 500 mg IM NOW ONE Stop: 09/13/21 08:21 Last Admin: 09/13/21 09:04 Dose: 500 mg Documented by: GARDENIA Prednisone (Prednisone 20 Mg Tablet) 60 mg PO NOW ONE Stop: 09/13/21 08:20 Last Admin: 09/13/21 08:33 Dose: 60 mg Documented by: GARDENIA Vital Signs Vital signs: Vital Signs - 8 hr 09/13/21 09:34 Temperature 97.8 F Pulse Rate 78 Respiratory Rate 18 Blood Pressure 157/71 H Pulse Oximetry 100 MDM - Skin/Abscess/Foreign Bdy Lab Data Labs: Lab Results 09/13/21 Range/Units 07:32 Urine RBC None seen (0-5/HPF) Urine WBC None seen (0-5/HPF) Urine Bacteria None seen (None) Ur Culture Indicated? Cult not indicated Micro UA Comment Microscopic normal Urine Dip Bedside Urine Glucose Negative Bedside Urine Bilirubin - Negative Bedside Urine Ketone - Negative Urine Specific [place] 1.015 Bedside Urine Occult Blood + Bedside Urine pH 5.5 Bedside Urine Protein - Negative Bedside Urine Urobilinogen - Negative Bedside Urine Nitrite - Negative Bedside Urine Leukocytes - Negative Esterase MDM Narrative Medical decision making narrative: This is a 45-year-old female with itchy rash on her left anterior chest and neck, as well as her groin and into the gluteal catheterization patient is sexually active few is concerned about STDs as well. She has not had any discharge. She has IUD in place. She does not have any cervical motion tenderness on exam. Cultures were sent after discussion patient elects to go ahead and have preemptive treatment for STDs. I suspect her rash is more of an possibly allergic response or urticarial hives we discussed she does sometimes use lubricants that might have irritated the area she typically has itchiness in the groin after sexual activity but usually resolves but she also does occasionally get hives. Plan for steroids. Topical Benadryl. Discharge Plan Departure Patient Disposition: Home Clinical Impression: Rash Instructions: DI for Rash Activity Restrictions/Additional Instructions: Your cultures are pending. These typically take 2-3 days to result. If you are not appropriately covered with antibiotics you should receive a call to add any additional medications. You received antibiotics to treat gonorrhea and chlamydia. No sexual activity for at least week after you finish these medications. Please take steroids until gone. You may use topical Benadryl/diphenhydramine (over the counter) or lidocaine to the affected area for the short term. Prescription sent to [facility] in [place] Please return for fevers, rashes continues to spread, blistering, new chest pain or shortness of breath, vomiting, no abdominal, back or flank pain, persistent vomiting or other new or concerning symptoms. Prescriptions: New prednisone 20 mg tablet 40 mg PO DAILY Qty: 10 0RF lidocaine 4 % cream 1 applic topical QID PRN (Reason: pain) Qty: 15 0RF No Action fluticasone propion-salmeterol [Advair Diskus] 250-50 mcg/dose blister with device 1 inhalation INHALATION BID Qty: 60 11RF Rx Instructions: Inhale 2 inhalations twice daily for asthma. montelukast 10 mg tablet 10 mg PO BEDTIME Qty: 90 3RF Rx Instructions: Take 1 tab at bedtime daily for suppression therapy. gabapentin 300 mg capsule See Rx Instructions PO TID Qty: 360 1RF Rx Instructions: Take 300mg am, 600mg at bedtime daily. Ok to add a 300mg dose mid-day. acyclovir 400 mg tablet 400 mg PO DAILY Qty: 90 3RF Rx Instructions: Take 1 tab daily supressive therapy. (DME) ADA Grab Bars for bathroom See Rx Instructions .Route .MEDSUPPLY Qty: 1 0RF Rx Instructions: As directed (DME) ADA Raised toilet seat See Rx Instructions .Route .MEDSUPPLY Qty: 1 0RF Rx Instructions: Used as directed (DME) ADA shower chair See Rx Instructions .Route .MEDSUPPLY Qty: 1 0RF Rx Instructions: As directed (DME) walker Misc See Rx Instructions .Route Qty: 1 0RF Rx Instructions: As directed (DME) Two Wheel Walker See Rx Instructions .Route .MEDSUPPLY Qty: 1 0RF Rx Instructions: As directed (DME) Single Point Cane See Rx Instructions .Route .MEDSUPPLY Qty: 1 0RF Rx Instructions: As directed meloxicam 15 mg tablet 15 mg PO DAILY Qty: 90 3RF Rx Instructions: Take 1 tab daily for pain. low dose naltrexone 4.5 mg PO .HS Qty: 90 3RF albuterol sulfate 90 mcg/actuation HFA aerosol inhaler See Rx Instructions .ROUTE .COMPLEX Qty: 8.5 0RF Dose Instruction: INHALE TWO PUFFS BY MOUTH EVERY FOUR TO SIX HOURS NEEDED FOR SHORTNESS OF BREATH OR WHEEZING Rx Instructions: INHALE TWO PUFFS BY MOUTH EVERY FOUR TO SIX HOURS NEEDED FOR SHORTNESS OF BREATH OR WHEEZING acetaminophen [Tylenol Extra Strength] 500 mg tablet 1,000 mg PO QID PRN0RF dextroamphetamine-amphetamine 30 mg capsule,extended release 24hr 30 mg PO DAILY 0RF levonorgestrel 20 mcg/24 hours (5 yrs) 52 mg intrauterine device intrauterine 0RF Label Comments: per patient, placed in 2016. omeprazole 20 mg capsule,delayed release(DR/EC) 20 mg PO BID 0RF guanfacine 1 mg tablet 1 mg PO BEDTIME 0RF lamotrigine 200 mg tablet 200 mg PO DAILY 0RF Referrals: Xiao Butts ARNP [Primary Care Provider] -
--- NOTE | 2021-09-13 07:43 | PC.NURSE ---
Pt c/o rash that started on her neck and spread to her buttocks and vagina. Urine positive for blood and leuks. Provider at the bedside.
--- NOTE | 2021-09-13 07:44 | ED_ITS ---
HPI - General Chief complaint: Urogenital-Female Stated complaint: itchy/painful rash/body/privates/std?? Time Seen by Provider: 09/13/21 07:25 Source: patient Mode of arrival: Ambulatory Limitations: no limitations Related Data Home Medications Medication Instructions Recorded Confirmed acetaminophen 500 mg tablet 1,000 mg PO QID PRN 12/27/19 06/12/21 (Tylenol Extra Strength) dextroamphetamine-amphetamine ER 30 mg PO DAILY 01/01/20 06/12/21 30 mg 24hr capsule,extend release levonorgestrel 20 mcg/24 hours (7 INTRAUTERINE 01/01/20 06/12/21 yrs) 52 mg intrauterine device omeprazole 20 mg capsule,delayed 20 mg PO BID 03/20/20 06/12/21 release guanfacine 1 mg tablet 1 mg PO BEDTIME 11/20/20 06/12/21 lamotrigine 200 mg tablet 200 mg PO DAILY 05/27/21 06/12/21 Previous Rx's Medication Instructions Recorded fluticasone 250 mcg-salmeterol 50 1 inhalation INHALATION BID #60 01/31/20 mcg/dose blistr powdr for each inhalation (Advair Diskus) montelukast 10 mg tablet 10 mg PO BEDTIME #90 tab 01/21/21 gabapentin 300 mg capsule See Rx Instructions PO TID #360 cap 01/22/21 acyclovir 400 mg tablet 400 mg PO DAILY #90 tab 01/27/21 ADA Grab Bars for bathroom #1 ea 02/10/21 ADA Raised toilet seat #1 ea 02/10/21 ADA shower chair #1 ea 02/10/21 walker #1 ea 02/10/21 Single Point Cane #1 ea 02/11/21 Two Wheel Walker #1 ea 02/11/21 meloxicam 15 mg tablet 15 mg PO DAILY #90 tab 05/04/21 low dose naltrexone 4.5 mg PO .HS #90 tab 05/06/21 albuterol sulfate 90 mcg/actuation See Rx Instructions .ROUTE 09/09/21 aerosol inhaler .COMPLEX #8.5 g Allergies Allergy/AdvReac Type Severity Reaction Status Date / Time Sulfa (Sulfonamide Allergy Verified 01/13/21 11:13 Antibiotics) Exam Initial Vital Signs Initial Vital Signs: Vital Signs Temperature 98 F 09/13/21 06:42 Pulse Rate 103 H 09/13/21 06:42 Respiratory Rate 18 09/13/21 06:42 Blood Pressure 156/68 H 09/13/21 06:42 Pulse Oximetry 100 09/13/21 06:42 Course Orders Ordered: ED Orders 09/13/21 07:32 Urine Microscopic Stat 09/13/21 08:18 Chlamydia/Gonoc/Myco Genital Stat Genital Culture Stat Herpes Simp Virus 1&2 IgG Stat Wet Prep Tric BV Rosa Stat Prednisone (Prednisone 20 Mg Tablet) 60 mg PO NOW ONE Stop: 09/13/21 08:20 Vital Signs Vital signs: Vital Signs - 8 hr 09/13/21 06:42 Temperature 98 F Pulse Rate 103 H Respiratory Rate 18 Blood Pressure 156/68 H Pulse Oximetry 100 MDM - OB/Uterine Contractions Lab Data Labs: Lab Results 09/13/21 Range/Units 07:32 Urine RBC None seen (0-5/HPF) Urine WBC None seen (0-5/HPF) Urine Bacteria None seen (None) Ur Culture Indicated? Cult not indicated Micro UA Comment Microscopic normal Urine Dip Bedside Urine Glucose Negative Bedside Urine Bilirubin - Negative Bedside Urine Ketone - Negative Urine Specific [place] 1.015 Bedside Urine Occult Blood + Bedside Urine pH 5.5 Bedside Urine Protein - Negative Bedside Urine Urobilinogen - Negative Bedside Urine Nitrite - Negative Bedside Urine Leukocytes - Negative Esterase Discharge Plan Departure Patient Disposition: Home Clinical Impression: Rash Prescriptions: No Action fluticasone propion-salmeterol [Advair Diskus] 250-50 mcg/dose blister with device 1 inhalation INHALATION BID Qty: 60 11RF Rx Instructions: Inhale 2 inhalations twice daily for asthma. montelukast 10 mg tablet 10 mg PO BEDTIME Qty: 90 3RF Rx Instructions: Take 1 tab at bedtime daily for suppression therapy. gabapentin 300 mg capsule See Rx Instructions PO TID Qty: 360 1RF Rx Instructions: Take 300mg am, 600mg at bedtime daily. Ok to add a 300mg dose mid-day. acyclovir 400 mg tablet 400 mg PO DAILY Qty: 90 3RF Rx Instructions: Take 1 tab daily supressive therapy. (DME) ADA Grab Bars for bathroom See Rx Instructions .Route .MEDSUPPLY Qty: 1 0RF Rx Instructions: As directed (DME) ADA Raised toilet seat See Rx Instructions .Route .MEDSUPPLY Qty: 1 0RF Rx Instructions: Used as directed (DME) ADA shower chair See Rx Instructions .Route .MEDSUPPLY Qty: 1 0RF Rx Instructions: As directed (DME) walker Misc See Rx Instructions .Route Qty: 1 0RF Rx Instructions: As directed (DME) Two Wheel Walker See Rx Instructions .Route .MEDSUPPLY Qty: 1 0RF Rx Instructions: As directed (DME) Single Point Cane See Rx Instructions .Route .MEDSUPPLY Qty: 1 0RF Rx Instructions: As directed meloxicam 15 mg tablet 15 mg PO DAILY Qty: 90 3RF Rx Instructions: Take 1 tab daily for pain. low dose naltrexone 4.5 mg PO .HS Qty: 90 3RF albuterol sulfate 90 mcg/actuation HFA aerosol inhaler See Rx Instructions .ROUTE .COMPLEX Qty: 8.5 0RF Dose Instruction: INHALE TWO PUFFS BY MOUTH EVERY FOUR TO SIX HOURS NEEDED FOR SHORTNESS OF BREATH OR WHEEZING Rx Instructions: INHALE TWO PUFFS BY MOUTH EVERY FOUR TO SIX HOURS NEEDED FOR SHORTNESS OF BREATH OR WHEEZING acetaminophen [Tylenol Extra Strength] 500 mg tablet 1,000 mg PO QID PRN0RF dextroamphetamine-amphetamine 30 mg capsule,extended release 24hr 30 mg PO DAILY 0RF levonorgestrel 20 mcg/24 hours (5 yrs) 52 mg intrauterine device intrauterine 0RF Label Comments: per patient, placed in 2016. omeprazole 20 mg capsule,delayed release(DR/EC) 20 mg PO BID 0RF guanfacine 1 mg tablet 1 mg PO BEDTIME 0RF lamotrigine 200 mg tablet 200 mg PO DAILY 0RF Referrals: Xiao Navarro ARNP [Primary Care Provider] -
[2021-09-13 08:02] LABS: Bacteria Urine None Seen; Culture Indicated Urine Cult Not Indicated; RBC Urine None Seen (0-5/HPF); Urine Comments Microscopic Normal; WBC Urine None Seen (0-5/HPF)
[2021-09-13] MEDS: predniSONE 20 MG TABLET 60 MG PO (08:33)
[2021-09-13] MEDS: AZITHROMYCIN 250 MG TABLET 1000 MG PO (08:34)
[2021-09-13] MEDS: cefTRIAXone 500 MG VIAL IM (09:04)
[2021-09-13 09:34] VITALS: BP 157/71; PULSE 78; RESP 18; TEMP 36.6; O2SAT 100
[2021-09-14 10:08] LABS: HSV 2 IGG AB < 0.91 index (0.00-0.90)
== END 2021-09-13 09:45 | disposition home or self-care (01) ==
PROVIDERS: Emergency Provider Emergency Medicine; Family Provider Nurse Practitioner; PCP Nurse Practitioner
DX: R21 Rash and other nonspecific skin eruption (principal); B00.9 Herpesviral infection, unspecified
CPT/HCPCS: 36415; 81003; 81015; 86695; 86696; 87070; 87205; 87210; 87491; 87563; 87591; 96372; 99283; 99284; J0696

== ENCOUNTER 2021-11-06 13:45 | Outpatient (RCR) | payer OTHER, MEDICAID, SELFPAY ==
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
--- NOTE | 2021-09-04 17:39 | PT.OPPOC ---
Physical, Occupational & Speech Therapy At [facility] Current Diagnoses Cystocele, unspecified (09/04/21) Visit Care Team Role Provider Type KAYLIE Tan Family Provider Advanced Production Line Mechanic Primary Care Provider Specialty: Family Practice Address: [address] [place] [address], [address] Email: [email or web address] Carol Heath MD Attending Provider Physician Referring Provider Specialty: IMPORT CLERK Address: [address] [place] [address], [address] Email: [email or web address] Plan Of Care PT-OP-T Assessment and Plan Start: 08/17/21 18:21 Freq: Status: Active Protocol: Document 09/04/21 13:48 LRN (Rec: 09/04/21 15:03 LRN [id number]) Physical Therapy Assessment Rehab Potential Rehabilitation Potential Fair Evaluation Complexity Number of Personal Factors/Comorbidities 3 or More Number of Body Systems Impaired 4 or More Clinical Presentation at Evaluation Evolving Impairments Impairments Activity Tolerance,Pain, Posture,ROM,Soft Tissue Mobility,Strength,Transfers Goals Five Impairment Constipation Short Term Goal (STG) Pt will be educated in proper hydration levels. STG Duration 09/11/21 Group Home Goal (LTG) Pt will be on a self care bowel program. LTG Duration 10/02/21 Four Impairment Cystcele grade 2; reported symptoms of grade 3. Short Term Goal (STG) Educate pt in proper coordination of movements with ADLs (crying, house cleaning) to decrease prolapse sensation. STG Duration 09/18/21 Field Foreman Goal (LTG) Decrease lower abdominal pain associated to cystocele. LTG Duration 12/03/21 Three Impairment Decrease number of voids/day ( PUF score 21) Short Term Goal (STG) Pt educated deep breathing technique to decrease stress response. Decrease number of voids per day (primarily at night) with a decrease PUF score 19 or less. STG Duration 10/21/21 Group Home Goal (LTG) Pt will be educated in urinary delay technique to decrease urinary leakage with a strong urge and for retraining of bladder to decrease number of voids per day. PUF score 14 or less. LTG Duration 12/03/21 Two Impairment Decreased PF strength Impairment Initial: Long hold 7 secs. Quick Flicks 12 reps in 10 secs of variable hold length and strength. Short Term Goal (STG) Pt will be aware of the sensation of a proper PF contraction without use of substitute muscles. STG Duration 10/21/21 Group Home Goal (LTG) Improve Quick Flick strength of 12 reps in 10 secs of 1 sec holds and with equal strength of contractions. Improve PF endurance to no less than 10 secs, to help with bladder stability and decrease prolapse enought to improve possibilty of not needing pessary. LTG Duration 12/03/21 One Impairment Pt lacks an independent self care HEP. Short Term Goal (STG) Pt will be educated in proper vulvar/genital care, proper ADLS including squatting and lifting, sit to stand, and moving in bed using breathwork and core/PF stabilization for proper abdominal pressure system STG Duration 10/21/21 Field Foreman Goal (LTG) Pt will be independent in a self care HEP for PF strengthening and bowel care. LTG Duration 12/03/21 Assessment Summary Assessment Pt presents today in standing with a grade II cystocele, bladder not extending beyond the vaginal opening. She appears to have a grade I rectocele deeper in the vaginal canal. The pt has weakness of the PF on the right lateral wall and posteriorly. She seems to have GI involvement with constipation problems that she is addressing by taking Metamucil. Functionally, she reports she can't stand for long time, limited in housework, and stress or anxiety increases prolapse. Per intake form the pt notes psychological disorder with history of trauma that will hinder her progress and might limit her rehabilitation potential. The pt will benefit from skilled physical therapy to work towards achieving the above stated goals. She might also benefit from referral to psychologist to help with pain and dealing with her stress and anxiety. Physical Therapy Plan Frequency and Duration Frequency of Treatment 1x/Week Plan of Care Start Date 09/04/21 Plan of Care End Date 12/03/21 Therapeutic Interventions Therapeutic Interventions Home Exercise Program,Joint Mobilizations,Manual Therapy, Neuromuscular Re-education, Patient/Caregiver Education, Self-Care/Home Management,Soft Tissue Mobilization, Therapeutic Activities, Therapeutic Exercises Modalities Biofeedback,Cold Pack/Ice Massage,Electric Stimulation, Hot Packs Other Referrals/Consults Referrals/Consults Recommended Psychologist for stress, anxiety and pain. Next Visit Focus/Plan Next Note Type Treatment Note Next Visit Plan Assess hip mobility & EMG Biofeedback assessment. Review bladder diary, pt education in proper Kegel without use of substitute muscles, pt education in proper vulvar/genital care, deep breathing and transfers, PF/core/hip strengthening, improve abdominal soft tissue (bladder) mobility, discuss foods, and water intake. Discuss stool types, foods, water intake, TA strengthening , discuss & educate pt in proper ADLS including squatting and lifting, sit to stand, and moving in bed using breathwork and core/PF stabilization for proper abdominal pressure system, teach proper isolated Kegels for pelvic stabilization, STM of abdomen (and urachus), bladder, PF strengthening and with daily activities. Plan of Care Dates Plan of Care Start Date 09/04/21 Plan of Care End Date 12/03/21 Electronically Signed by: Carmella Oden, PT 09/04/21 [id number] Please Sign and Return: I have reviewed this Plan of Care and certify that the skilled therapy services above are required to meet the patient?s needs. Physician Signature Date Printed Name and Credentials Clinical Instructor Signature Printed Name and Credentials
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
--- NOTE | 2021-10-22 17:31 | PT-OP ANOTE ---
Msg received that Marija Lyles was going through a family issue & medical condition and that is why she has canceled several appointments. She will be back 10/30/21.
--- NOTE | 2021-10-30 17:01 | PT-OP ANOTE ---
Per phone conversation the pt apologized and stated she forgot her appointment today. States she had been dealing with infidelity issues and was having personal hygiene issues (body lice) and wanted to wait until she had her condition controlled before returning. She is now able to resume therapy, but just forgot today. She was reminded of her next appointment and time and pt agreed she will attend.
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
--- NOTE | 2021-11-13 14:45 | PT-OP ANOTE ---
Pt called, message left notifying of missed appointment and time of her next appointment.
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
== END 2022-03-31 13:55 ==
LOC: PHYS 13:45
PROVIDERS: Family Provider Nurse Practitioner; PCP Nurse Practitioner; Referring Provider Specialist; Visit Provider Specialist
DX: N81.10 Cystocele, unspecified (principal); M62.81 Muscle weakness (generalized); K59.00 Constipation, unspecified; R10.30 Lower abdominal pain, unspecified
CPT/HCPCS: 97110; 97162; 97535

== ENCOUNTER → 2022-02-11 11:51 | Outpatient (CLI) | payer OTHER, MEDICAID, SELFPAY ==
--- NOTE | 2022-02-11 11:52 | DI.MG.S_ITS ---
BILATERAL DIGITAL DIAGNOSTIC MAMMOGRAM 3D/2D: 02/11/2022 CLINICAL: Short term follow up of the right breast, due for bilateral imaging. Comparison is made to exams dated: 02/19/2021 ultrasound, 02/19/2021 mammogram, 08/11/2020 ultrasound, 02/05/2020 ultrasound, and 02/05/2020 mammogram - [facility]. The tissue of both breasts is heterogeneously dense. This may lower the sensitivity of mammography. No significant masses, calcifications, or other findings are seen in either breast. IMPRESSION: INCOMPLETE: NEEDS ADDITIONAL IMAGING EVALUATION There is no definite mammographic abnormality seen in the right breast to correspond with the previously described ultrasound finding at 7 o'clock, however, an ultrasound is recommended for further evaluation and is scheduled to immediately follow this examination. Based on the Tyrer Cuzick model (a risk assessment model) the patient's lifetime risk is 12.5% and her 10 year risk is 2.1%. According to the ACR, ACS, and NCCN guidelines, an annual breast MRI exam along with mammogram is recommended if the patient's lifetime risk is 20% or greater. This exam was interpreted at Station ID: [id number]. NOTE: For mammograms, a report in lay terms will be sent to the patient. Approximately 15% of breast malignancies will not be visualized mammographically. In the management of a palpable breast mass, a negative mammogram must not discourage biopsy of a clinically suspicious lesion. Electronically Signed By: Efra Guillen M.D. aty/:02/11/2022 12:22:15 ACR BI-RADS Category 0: Incomplete [id number]
--- NOTE | 2022-02-11 11:52 | DI.US.S_ITS ---
ULTRASOUND OF RIGHT BREAST: 02/11/2022 CLINICAL: Patient returns for a 12 month follow up of the right breast. Comparison is made to exams dated: 02/11/2022 mammogram, 02/19/2021 ultrasound, 02/19/2021 mammogram, 08/11/2020 ultrasound, 02/05/2020 ultrasound, and 02/05/2020 mammogram - [facility]. Color flow and real-time ultrasound of the right breast were performed. Hwang scale images of the real-time examination were reviewed. There is a stable 0.6 cm x 0.3 cm x 0.5 cm oval cyst with thin septated internal loaiza in the right breast at 7 o'clock anterior depth 8 cm from the nipple. This oval cyst is hypoechoic with internal echoes and posterior acoustic enhancement. Color flow imaging demonstrates that there is no vascularity present. IMPRESSION: BENIGN There is no sonographic evidence of malignancy. The stable 0.6 cm x 0.3 cm x 0.5 cm oval cyst in the right breast is consistent with a complicated cyst. This finding has demonstrated two years of stability and is consistent with a benign process. Return to annual mammogram screening schedule is recommended. Findings and recommendations were conveyed to the patient during today's evaluation. This exam was interpreted at Station ID: [id number]. Electronically Signed By: Efra stock/:02/11/2022 12:51:21 Entry: - 02/12/2022 11:36:01 letter sent: Normal Exam Ultrasound BI-RADS: 2 Benign
== END ==
PROVIDERS: Family Provider Nurse Practitioner; PCP Nurse Practitioner; Referring Provider Nurse Practitioner; Visit Provider Nurse Practitioner
DX: R92.8 Other abnormal and inconclusive findings on diagnostic imaging of breast (principal); N60.01 Solitary cyst of right breast
CPT/HCPCS: 76642; 77066; G0279

== ENCOUNTER 2023-09-29 11:50 | Day surgery (SDC) | payer OTHER, MEDICAID, SELFPAY ==
[2023-09-29] MEDS: LACTATED RINGERS 1,000 ML 42 ML IV (12:15)
--- NOTE | 2023-09-29 12:24 | P.HP_ITS ---
History of Present Illness History of Present Illness Date Patient Seen: 09/29/23 Time Patient Seen: 12:24 [place] [facility] [place]arrative: Marija Lyles is a 47 year old woman who is here for a colonoscopy. Her last one was at [facility] in 2017 and precancerous polyps were removed. She is adopted so she does not know if she has a family history of colon cancer. [facility] Medical History (Updated 09/29/23 @ 12:25 by Irvin Crowe MD) Chronic fatigue Adverse drug effect Vesicular palmoplantar eczema Carpal tunnel syndrome on both sides Pre-diabetes Vasomotor symptoms due to menopause Chronic pain syndrome Skin flap infection Excessive skin and subcutaneous tissue Complications of gastric bypass surgery Hyper reflexia Depression with anxiety Fibromyalgia Vitamin E deficiency Other dietary vitamin B12 deficiency anemia Painful menstrual periods IUD (intrauterine device) in place Breast mass in female Chronic back pain Well woman exam [facility] Preventative health care Right knee pain Right shoulder pain Right elbow pain Rash Surgical History History of gastric bypass Social History Smoking Status: Never smoker Meds Home Medications and Allergies Home Medications Medication Instructions Recorded Confirmed Type acetaminophen 500 mg tablet 1,000 mg PO QID PRN 12/27/19 09/14/23 History (Tylenol Extra Strength) levonorgestrel 21 mcg/24 hours (8 intrauterine 01/01/20 09/14/23 History yrs) 52 mg intrauterine device omeprazole 20 mg capsule,delayed 20 mg PO BID 03/20/20 09/14/23 History release ADA Grab Bars for bathroom #1 ea 02/10/21 09/14/23 Rx ADA Raised toilet seat #1 ea 02/10/21 09/14/23 Rx ADA shower chair #1 ea 02/10/21 09/14/23 Rx walker #1 ea 02/10/21 09/14/23 Rx Single Point Cane #1 ea 02/11/21 09/14/23 Rx Two Wheel Walker #1 ea 02/11/21 09/14/23 Rx lamotrigine 200 mg tablet 200 mg PO DAILY 05/27/21 09/14/23 History lidocaine 4 % topical cream 1 applic topical QID PRN pain #15 09/13/21 09/14/23 Rx grams ciclopirox 0.77 % topical 1 applic topical BID #60 mL 02/17/22 09/14/23 Rx suspension Glucometer #1 ea 08/24/22 09/14/23 Rx Glucometer test strips #100 ea 08/24/22 09/14/23 Rx Lancer #1 ea 08/24/22 09/14/23 Rx Lancette #100 ea 08/24/22 09/14/23 Rx meloxicam 15 mg tablet See Rx Instructions .Route 08/25/22 09/14/23 Rx .COMPLEX #90 tabs bupropion HCl 150 mg 24 hr tablet, 150 mg PO QAM #90 tabs 12/23/22 09/14/23 Rx extended release acyclovir 400 mg tablet 400 mg PO DAILY #90 tabs 04/29/23 09/14/23 Rx Mirena IUD vaginal 05/19/23 09/14/23 History Skin Prep for Medication Patch 05/19/23 09/14/23 History lisdexamfetamine 70 mg capsule 70 mg PO QAM 05/19/23 09/14/23 History (Vyvanse) albuterol sulfate 90 mcg/actuation See Rx Instructions .Route 05/27/23 09/14/23 Rx aerosol inhaler .COMPLEX #8.5 grams gabapentin 100 mg capsule 100 mg PO TID PRN nerve pain #90 06/22/23 09/14/23 Rx caps montelukast 10 mg tablet See Rx Instructions .Route 06/22/23 09/14/23 Rx .COMPLEX #90 tabs peg 3350-electrolytes 236 240 ml PO Q10M #4,000 mL 07/19/23 09/14/23 Rx gram-22.74 gram-6.74 gram-5.86 gram solution (Golytely) low dose naltrexone 4.5 mg PO .HS pain and insomnia 09/09/23 09/14/23 Rx #90 tabs fluticasone 250 mcg-salmeterol 50 2 inh inhalation BID #120 ea 09/14/23 09/14/23 Rx mcg/dose blistr powdr for inhalation (Advair Diskus) ipratropium 0.5 mg-albuterol 3 mg 3 ml inhalation Q4-6H PRN 09/14/23 09/14/23 Rx (2.5 mg base)/3 mL nebulization shortness of breath #180 mL soln prednisone 5 mg tablets in a dose See Rx Instructions PO PER PKG DIR 09/19/23 Rx pack #42 ea Nebulizer #1 ea 09/28/23 Rx Allergies Allergy/AdvReac Type Severity Reaction Status Date / Time Sulfa (Sulfonamide Allergy Verified 09/29/23 12:20 Antibiotics) gabapentin AdvReac Severe memory loss Verified 09/29/23 12:20 Exam Const General: healthy appearing Resp Effort & Inspection: normal respiratory effort Assessment & Plan Assessment and plan (1) Personal history of colonic polyps: Status: Acute Plan We discussed the risks and benefits of colonoscopy for a personal history of colon polyps and she would like to proceed.
[2023-09-29 12:38] VITALS: BP 101/65; PULSE 81; RESP 16; TEMP 36.4; O2SAT 98
[2023-09-29] MEDS: ONDANSETRON 4 MG/2 ML INJ (13:15)
--- NOTE | 2023-09-29 13:39 | PM.OP.COLON ---
Operative Date/Time/Diagnoses Date of procedure: 09/29/23 Time of procedure: 13:40 Pre-op diagnosis: Colon cancer screening Post-op diagnosis: same Procedure & Clinicians Study performed: Colonoscopy Same procedure as scheduled: Yes Surgeon: Irvin Crowe Procedure Notes Procedure in detail: Surgeon: Irvin Crowe MD Anesthesia: Hali Long D.O. Procedure: The patient was brought to the endoscopy suite, placed in left lateral decubitus position. The patient was connected to monitoring devices. A time-out was performed. Sedation was administered. Once the patient was adequately sedated, a digital rectal exam was performed and was normal. The scope was then inserted and advanced to the cecum where the appendiceal orifice was identified and photographed. The scope was then slowly withdrawn over greater than 6 minutes. The mucosa was thoroughly inspected. No abnormalities were found. The scope was retroflexed in the rectum. No abnormalities were seen. The scope was straightened and removed. The patient was awakened and brought to recovery. Scope withdrawal time: 9 minutes Sedation time: 16 minutes EBL: 0 Findings: Normal colon Post-procedure Recommendations: Colonoscopy in 10 years Disposition: PACU
[2023-09-29 13:41] VITALS: BP 111/59; PULSE 79; RESP 16; TEMP 36.2; O2SAT 100
[2023-09-29 13:46] VITALS: BP 105/59; PULSE 78; RESP 16; O2SAT 100
[2023-09-29 13:52] VITALS: BP 115/69; PULSE 70; RESP 14; TEMP 36.2; O2SAT 99
== END 2023-09-29 14:01 | disposition home or self-care (01) ==
PROVIDERS: Family Provider Nurse Practitioner; PCP Nurse Practitioner; Referring Provider Surgery; Visit Provider Surgery
PROC: 0DJD8ZZ Inspection of Lower Intestinal Tract, Via Natural or Artificial Opening Endoscopic (ICD-10-PCS; CPT 45378; principal; 2023-09-29 12:45)
DX: Z12.11 Encounter for screening for malignant neoplasm of colon (principal); Z86.010 Personal history of colon polyps
CPT/HCPCS: 45378; 81025; J2405; J2704

== ENCOUNTER → 2023-12-14 11:17 | Outpatient (CLI) | payer OTHER, MEDICAID, SELFPAY | PROVIDERS: Family Provider Nurse Practitioner; PCP Nurse Practitioner; Visit Provider Nurse Practitioner | DX: R35.0 Frequency of micturition (principal) | CPT/HCPCS: 87086 ==

== ENCOUNTER → 2023-12-14 11:54 | Outpatient (CLI) | payer OTHER, MEDICAID, SELFPAY ==
[2023-12-14 13:34] LABS: Pregnancy Test Serum,Qual Negative (Negative)
== END ==
PROVIDERS: Family Provider Nurse Practitioner; PCP Nurse Practitioner; Referring Provider Nurse Practitioner; Visit Provider Nurse Practitioner
DX: N81.10 Cystocele, unspecified (principal); N91.2 Amenorrhea, unspecified; R10.2 Pelvic and perineal pain; R35.0 Frequency of micturition
CPT/HCPCS: 36415; 81002; 84703; 87086

== ENCOUNTER → 2023-12-20 10:33 | Outpatient (CLI) | payer OTHER, MEDICAID, SELFPAY | PROVIDERS: Family Provider Nurse Practitioner; PCP Nurse Practitioner; Visit Provider Obstetrics & Gynecology | DX: R10.2 Pelvic and perineal pain (principal); R82.90 Unspecified abnormal findings in urine | CPT/HCPCS: 87086 ==

== ENCOUNTER → 2023-12-27 09:05 | Outpatient (CLI) | payer OTHER, MEDICAID, SELFPAY ==
--- NOTE | 2023-12-27 09:06 | DI.US.S_ITS ---
PROCEDURE: US PELVIC COMPLETE INDICATIONS: pelvic pain TECHNIQUE: Real-time scanning was performed of the pelvic organs, with image documentation. Additional endovaginal scanning was necessary due to incomplete visualization of the adnexal and endometrial structures by transabdominal scanning. COMPARISON: None. FINDINGS: Uterus: 8 x 4.5 x 4.8 cm. Anteverted positioning. IUD in place. Endometrium measures 5 mm. Posterior subserosal fibroid measures 1.1 cm. Ovaries: Nonenlarged ovaries bilaterally. Follicular cysts are seen. Clustered cysts is seen in the left ovary measuring up to 2.5 x 2.2 cm, likely physiologic. Color and spectral flows are seen. Other: No pathologic free fluid. IMPRESSION: No acute sonographic abnormality. Cysts cluster in the left ovary, likely physiologic. Consider follow-up if there are continued symptoms. Dictated by: Jovon Haskins M.D. on 12/27/2023 at 10:23 Approved by: Jovon Haskins M.D. on 12/27/2023 at 10:26
== END ==
LOC: US 09:06
PROVIDERS: Family Provider Nurse Practitioner; PCP Nurse Practitioner; Referring Provider Nurse Practitioner; Visit Provider Nurse Practitioner
DX: N83.02 Follicular cyst of left ovary (principal); R10.2 Pelvic and perineal pain; Z97.5 Presence of (intrauterine) contraceptive device
CPT/HCPCS: 76856

== ENCOUNTER 2024-07-05 12:08 | Day surgery (SDC) | payer OTHER, MEDICAID, SELFPAY ==
--- NOTE | 2024-07-05 | PATH_ITS ---
[facility] Accession Number: [id number] No. of containers..02 Tissue . 01 Material submitted: . PART A: duodenum - DUODENUM PART B: gastrointestinal site - ANTRUM . 01 Diagnosis: A. DUODENUM, BIOPSY: Duodenal mucosa with reactive changes consistent with peptic duodenitis. No evidence of celiac disease. . B. ANTRUM, BIOPSY: Gastric mucosa with mild chronic inflammation and mild reactive gastropathy alterations. No Helicobacter pylori organisms identified on immunohistochemical evaluation. No intestinal metaplasia, dysplasia, or malignancy. MRV 07/09/2024 1555 Local . 01 Electronically signed: . Sherrie Barba MD, Pathologist NPI- [id number] . 01 Gross description: . A. Received in formalin with two patient identifiers and duodenum, are two reynaga soft tissue fragments, 0.3 to 0.4 cm in greatest dimension, submitted in A1. B. Received in formalin with two patient identifiers and antrum, are four reynaga soft tissue fragments, 0.3 to 0.5 cm in greatest dimension, submitted in B1. ([id number]) /MRV 07/06/2024 1322 Local . 01 Microscopic: . B. An immunohistochemical stain was performed to evaluate for Helicobacter organisms and is negative. The control stain showed appropriate reactivity. . * This test was developed and the performance characteristics were validated by [facility]. It has not been cleared or approved by the U.S. Food and Drug Administration. . 01 Pathologist provided ICD-10: K29.80, K29.70, K29.60 . 01 CPT . 660710, 072928, [id number] Specimen Comment: A courtesy copy of this report has been sent to [phone] Performed at: [address] [facility] [address], [place], [place] [id number] MD Jameson Stovall MD Phone: [phone]
[2024-07-05 13:01] VITALS: BP 134/77; PULSE 78; RESP 12; TEMP 36.5; O2SAT 98
--- NOTE | 2024-07-05 13:42 | P.HP_ITS ---
History of Present Illness History of Present Illness Date Patient Seen: 07/05/24 Time Patient Seen: 13:42 Chief complaint: SDC Narrative: Marija Lyles is a 48-year-old woman who has dyspepsia. See the office note for more details. 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 Gastric reflux Hormone replacement therapy (HRT) Asthma exacerbation Chronic fatigue Adverse drug effect Vesicular palmoplantar eczema Carpal tunnel syndrome on both sides Pre-diabetes Vasomotor symptoms due to menopause Chronic pain syndrome Skin flap infection Excessive skin and subcutaneous tissue Complications of gastric bypass surgery Hyper reflexia Depression with anxiety Fibromyalgia Vitamin E deficiency Other dietary vitamin B12 deficiency anemia Painful menstrual periods IUD (intrauterine device) in place Breast mass in female Chronic back pain Well woman exam [facility] Preventative health care Right knee pain Right shoulder pain Right elbow pain Rash Surgical History History of gastric bypass Social History Smoking Status: Never smoker alcohol intake: current Meds Home Medications and Allergies Home Medications Medication Instructions Recorded Confirmed Type acetaminophen 500 mg tablet 1,000 mg PO QID PRN pain 12/27/19 05/23/24 History (Tylenol Extra Strength) levonorgestrel 21 mcg/24 hr (up to intrauterine 01/01/20 05/23/24 History 8 years) 52 mg intrauterine device ADA Grab Bars for bathroom #1 ea 02/10/21 05/23/24 Rx ADA Raised toilet seat #1 ea 02/10/21 05/23/24 Rx ADA shower chair #1 ea 02/10/21 05/23/24 Rx walker #1 ea 02/10/21 05/23/24 Rx Single Point Cane #1 ea 02/11/21 05/23/24 Rx Two Wheel Walker #1 ea 02/11/21 05/23/24 Rx lidocaine 4 % topical cream 1 applic topical QID PRN pain #15 09/13/21 05/23/24 Rx grams Glucometer #1 ea 08/24/22 05/23/24 Rx Glucometer test strips #100 ea 08/24/22 05/23/24 Rx Lancer #1 ea 08/24/22 05/23/24 Rx Lancette #100 ea 08/24/22 05/23/24 Rx Mirena IUD vaginal 05/19/23 05/23/24 History Skin Prep for Medication Patch 05/19/23 05/23/24 History lisdexamfetamine 70 mg capsule 70 mg PO QAM 05/19/23 05/23/24 History (Vyvanse) gabapentin 100 mg capsule 100 mg PO TID PRN nerve pain #90 06/22/23 05/23/24 Rx caps montelukast 10 mg tablet See Rx Instructions .Route 06/22/23 07/05/24 Rx .COMPLEX #90 tabs ipratropium 0.5 mg-albuterol 3 mg 3 ml inhalation Q4-6H PRN 09/14/23 07/05/24 Rx (2.5 mg base)/3 mL nebulization shortness of breath #180 mL soln Nebulizer #1 ea 09/28/23 05/23/24 Rx bupropion HCl 150 mg 24 hr tablet, 150 mg PO QAM 12/14/23 07/05/24 History extended release duloxetine 20 mg capsule,delayed 20 mg PO BID 12/14/23 05/23/24 History release omeprazole 20 mg capsule,delayed 20 mg PO BID #180 caps 12/14/23 05/23/24 Rx release estradiol 10 mcg vaginal tablet See Rx Instructions .Route 01/31/24 05/23/24 Rx .COMPLEX #48 tabs low dose naltrexone 4.5 mg PO .HS pain and insomnia 02/07/24 05/23/24 Rx #90 tabs Disabled Parking Permit See Rx Instructions .Route 02/08/24 05/23/24 Rx .COMPLEX #1 ea acyclovir 400 mg tablet 400 mg PO DAILY #90 tabs 02/14/24 05/23/24 Rx lamotrigine 200 mg tablet 200 mg PO DAILY 02/14/24 07/05/24 History meloxicam 15 mg tablet See Rx Instructions .Route 02/14/24 05/23/24 Rx .COMPLEX #90 tabs fluticasone 250 mcg-salmeterol 50 2 inh inhalation BID 90 days #60 ea 02/21/24 07/05/24 Rx mcg/dose blistr powdr for inhalation (Advair Diskus) hydrocodone 10 mg-acetaminophen 1 tab PO BID PRN pain #60 tabs 03/08/24 05/23/24 Rx 325 mg tablet ondansetron 8 mg disintegrating 8 mg PO Q8H PRN nausea and 03/08/24 05/23/24 Rx tablet vomiting #60 tabs albuterol sulfate 90 mcg/actuation See Rx Instructions .Route 03/21/24 05/23/24 Rx aerosol inhaler .COMPLEX #8.5 grams Allergies Allergy/AdvReac Type Severity Reaction Status Date / Time lorazepam Allergy Mild Hives Verified 07/05/24 12:50 ziprasidone [From Geodon] Allergy Mild Hives Verified 07/05/24 12:50 Sulfa (Sulfonamide Allergy Verified 07/05/24 12:50 Antibiotics) gabapentin AdvReac Severe memory loss Verified 07/05/24 12:50 NSAIDS (Non-Steroidal AdvReac Mild Verified 07/05/24 12:50 Anti-Inflamma Exam Vital Signs (past 8 hours): - 07/05/24 13:01 Temperature 97.7 F Pulse Rate 78 Respiratory Rate 12 Blood Pressure 134/77 Pulse Oximetry 98 Oxygen Delivery Method Room Air Oxygen Delivery Method Room Air Const General: No acute distress Assessment & Plan Assessment and plan (1) Epigastric pain: Status: Acute Plan Proceed with the EGD Time-Based Coding :: [TOTAL MINUTES] spent with patient and on the chart (including review of chart, obtaining history, exam, reviewing outside data, placing orders, documenting exam and treatment plan, and counseling patient) on [DATE].
--- NOTE | 2024-07-05 14:14 | PM.OP.EGD ---
Operative Date/Time/Diagnoses Date of procedure: 07/05/24 Time of procedure: 14:14 Pre-op diagnosis: Dyspepsia Post-op diagnosis: same Procedure & Clinicians Study performed: Esophagogastroduodenoscopy Same procedure as scheduled: Yes Surgeon: Irvin Crowe Procedure Notes Procedure in detail: Surgeon: Irvin Crowe MD Anesthesia: Garrett Bautista CRNA A timeout was performed. A bite blocked was placed. The patient was positioned in the left lateral decubitus position. Anesthesia was administered. The endoscope was inserted through the bite block and passed through the esophagus and stomach and into the duodenum. The duodenal mucosa appeared normal. Random biopsies were taken from the duodenal mucosa with cold forceps. The scope was withdrawn into the duodenal bulb and no abnormalities were seen. The scope was withdrawn into the stomach. There was mild antritis and random biopsies were taken from the antrum with cold forceps. There was evidence of a gastric sleeve but the mucosa in the rest of the stomach appeared relatively normal. The scope was withdrawn into the esophagus and no abnormalities were seen. The remainder of the esophagus was normal. The scope was withdrawn. The patient was awakened and brought to recovery. Sedation time: 4 minutes Findings: Mild antritis Post-procedure Disposition: PACU
[2024-07-05 14:17] VITALS: BP 136/76; PULSE 80; RESP 14; TEMP 36.3; O2SAT 100
[2024-07-05 14:22] VITALS: BP 130/90; PULSE 75; RESP 17; TEMP 36.7; O2SAT 100
[2024-07-05 14:28] VITALS: BP 149/81; PULSE 73; RESP 20; TEMP 36.7; O2SAT 100
[2024-07-05 15:01] VITALS: BP 134/77; PULSE 78; RESP 16; TEMP 36.2; O2SAT 98
== END 2024-07-05 15:05 | disposition home or self-care (01) ==
PROVIDERS: Family Provider Nurse Practitioner; PCP Nurse Practitioner; Referring Provider Surgery; Visit Provider Surgery
PROC: 0DJ08ZZ Inspection of Upper Intestinal Tract, Via Natural or Artificial Opening Endoscopic (ICD-10-PCS; CPT 43239; principal; 2024-07-05 13:30)
DX: K29.50 Unspecified chronic gastritis without bleeding (principal)
CPT/HCPCS: 43239; J2704; J3010

== ENCOUNTER → 2024-07-23 12:21 | Outpatient (CLI) | payer OTHER, SELFPAY ==
--- NOTE | 2024-07-23 12:22 | DI.RAD.S_ITS ---
PROCEDURE: XR KNEE RT 3V INDICATIONS: pain TECHNIQUE: 3 views of the knee were acquired. COMPARISON: [facility], CR, XR KNEE LT 3V, 07/23/2024, 12:37. [facility], CR, XR KNEE RT 3V, 06/13/2020, 11:19. FINDINGS: No acute fracture or dislocation. Mild-moderate tricompartmental osteoarthritis, most conspicuous in the medial and patellofemoral compartments. Small joint effusion. IMPRESSION: Mild-moderate tricompartmental osteoarthritis. Dictated by: Gage Millan M.D. on 07/23/2024 at 16:08 Approved by: Gage Millan M.D. on 07/23/2024 at 16:08
--- NOTE | 2024-07-23 12:22 | DI.RAD.S_ITS ---
PROCEDURE: XR KNEE LT 3V INDICATIONS: pain TECHNIQUE: 3 views of the knee were acquired. COMPARISON: [facility], CR, XR KNEE RT 3V, 06/13/2020, 11:19. FINDINGS: No acute fracture or dislocation. Mild tricompartmental osteoarthritis. Small joint effusion. IMPRESSION: Mild tricompartmental osteoarthritis. Dictated by: Gage Millan M.D. on 07/23/2024 at 16:07 Approved by: Gage Millan M.D. on 07/23/2024 at 16:07
== END ==
PROVIDERS: Family Provider Nurse Practitioner; PCP Family Medicine; Referring Provider Family Medicine; Visit Provider Family Medicine
DX: M25.561 Pain in right knee (principal); M25.562 Pain in left knee; M17.0 Bilateral primary osteoarthritis of knee
CPT/HCPCS: 73562

== ENCOUNTER 2025-04-23 16:17 | Emergency (ER) | payer OTHER, SELFPAY ==
[2025-04-23 16:44] VITALS: BP 123/69; PULSE 105; RESP 18; TEMP 36.5; O2SAT 100; BMI 33.4
--- NOTE | 2025-04-23 16:51 | EKG_ITS ---
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
--- NOTE | 2025-04-23 17:05 | EKG_ITS ---
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
--- NOTE | 2025-04-23 17:10 | DI.RAD.S_ITS ---
PROCEDURE: XR CHEST 1V INDICATIONS: Chest Pain TECHNIQUE: One view of the chest was acquired. COMPARISON: [facility], CR, XR CHEST 2V, 01/31/2020, 19:47. FINDINGS: Surgical changes and devices: None. Lungs and pleura: Lungs are clear. No pleural effusions or pneumothorax. Mediastinum: Mediastinal contours appear normal. Heart size is normal. Bones and chest wall: No suspicious bony lesions. Overlying soft tissues appear unremarkable. IMPRESSION: No acute cardiopulmonary abnormality is seen. Dictated by: Stanley Alston M.D. on 04/23/2025 at 17:23 Approved by: Stanley Alston M.D. on 04/23/2025 at 17:23
[2025-04-23] MEDS: ASPIRIN 81 MG CHEW TAB 324 MG PO (17:31)
[2025-04-23 17:39] LABS: Add Manual Diff / Slide Review NO; Hematocrit 38.5 % (36-46); Hemoglobin 13.0 g/dL (12.0-16.0); Lymphocytes Absolute Auto 1900 /uL (1100-4500); Mean Corpuscular HGB Conc 33.9 % (30-36); Mean Corpuscular Hemoglobin 28.2 PG (26-34); Mean Corpuscular Volume 83.1 fL (80-100); Platelet Count 352 X10^3/uL (150-400)
[2025-04-23 17:44] LABS: INR 0.9 (0.9-1.3); Prothrombin Time 10.7 SECONDS (9.4-12.5)
[2025-04-23 17:47] LABS: Alanine Aminotransferase 17 IU/L (<35); Albumin 4.9 g/dL (3.5-5.0); Albumin Globulin Ratio 1.4 (1.0-2.8); Alkaline Phosphatase 71 U/L (38-126); Blood Urea Nitrogen 13 mg/dL (7-17); Calcium 9.2 mg/dL (8.4-10.2); Carbon Dioxide 26 mmol/L (22-32); Chloride 105 mmol/L (98-107); Creatine Kinase 200 U/L (30-135); Estimated Glomerular Filt Rate > 60 mL/min (>60); Globulin 3.5 g/dL (1.7-4.1); Glucose 72 mg/dL (70-99); HEMOLYSIS < 15 (0-50); Lipase 85 U/L (23-300); Magnesium 2.3 mg/dL (1.6-2.3); PTT Partial Thromboplastin Tim 38 SECONDS (25.1-36.5); Potassium 3.7 mmol/L (3.4-5.1); Sodium 140 mmol/L (137-145); Total Protein 8.4 g/dL (6.3-8.2)
--- NOTE | 2025-04-23 17:48 | ED_ITS ---
HPI - Chest Pain General Chief Complaint: Chest Pain Stated Complaint: Sent from [facility] for possible blood clot Time Seen by Provider: 04/23/25 16:38 Source: patient Mode of arrival: Ambulatory Limitations: no limitations History of Present Illness HPI narrative: 49-year-old female patient with a history of anxiety/depression/PTSD/ADHD with chronic pain issues including fibromyalgia and other neuropathic pain along with back pain. She complains of sudden onset severe right lateral lower leg burning pain at around 9:30 a.m. this morning which is still present but has improved. She has had some numbness in the lower leg on the right but no coldness or weakness. She went to urgent Care to be seen for this problem and then developed a racing heart sensation with stabbing pain in the mid chest and the right shoulder which has resolved. Currently has no chest pain and has [id number] right lateral lower leg pain with numbness. Related Data Home Medications ?Medication ?Instructions ?Recorded ?Confirmed acetaminophen 500 mg tablet 1,000 mg PO QID PRN pain 0 12/27/19 04/02/25 (Tylenol Extra Strength) Mirena IUD vaginal 05/19/23 04/02/25 lisdexamfetamine 70 mg capsule 70 mg PO QAM 05/19/23 0 04/02/25 (Vyvanse) bupropion HCl 150 mg 24 hr tablet, 150 mg PO QAM 12/1304/02/25 extended release lamotrigine 100 mg tablet 200 mg PO DAILY 03/05/2504/18 Previous Rx's ?Medication ?Instructions ?Recorded lidocaine 4 % topical cream 1 applic topical QID PRN p ain #15 09/13/21 grams Nebulizer #1 ea 09/28/23 low dose naltrexone 4.5 mg PO .HS pain and insom [place] 02/07/24 #90 tabs meloxicam 15 mg tablet See Rx Instructions .Route 0 02/14/24 .COMPLEX #90 tabs montelukast 10 mg tablet See Rx Instructions .Route 1 .COMPLEX #90 tabs omeprazole 20 mg capsule,delayed 20 mg PO BID #180 cap s 12/07/24 release fluticasone 250 mcg-salmeterol 50 2 inh inhalation BID 90 days #60 ea 01/28/25 mcg/dose blistr powdr for inhalation (Advair Diskus) ipratropium 0.5 mg-albuterol 3 mg 3 ml inhalation Q4-6 H PRN 01/28/25 (2.5 mg base)/3 mL nebulization shortness of breath #1 80 mL soln acyclovir 400 mg tablet 400 mg PO DAILY #90 tabs 06/18 albuterol sulfate 90 mcg/actuation See Rx Instructions .Route 03/05/25 aerosol inhaler .COMPLEX #8.5 grams cyclobenzaprine 10 mg tablet 5 - 10 mg (0.5 - 1 x 10 m g) PO 03/05/25 BEDTIME PRN muscle spasm #30 tabs hydrocodone 10 mg-acetaminophen 1 tab PO BID PRN pain #60 tabs 03/05/25 325 mg tablet hydrocodone 10 mg-acetaminophen 1 tab PO BID PRN pain #60 tabs 03/05/25 325 mg tablet hydrocodone 10 mg-acetaminophen 1 tab PO BID PRN pain #60 tabs 03/05/25 325 mg tablet phenazopyridine 100 mg tablet 100 mg PO Q8H PRN pain # 6 tabs 03/05/25 (Pyridium) pregabalin 75 mg capsule (Lyrica) 75 mg PO BID #60 cap s 03/05/25 estradiol 10 mcg vaginal tablet See Rx Instructions .R oute 04/01/25 .COMPLEX #48 tabs ondansetron 8 mg disintegrating 8 mg PO Q8H PRN nausea and 04/01/25 tablet vomiting #60 tabs milnacipran 50 mg tablet (Savella) 50 mg PO BID #60 ta bs 04/17/25 naltrexone 50 mg tablet 4.5 mg (0.09 x 50 mg) PO MICHAEL LY #30 04/19/25 tabs Allergies Allergy/AdvReac Type Severity Reaction Status Date / Time lorazepam Allergy Mild Hives Verified 04/02/25 09:35 ziprasidone (From Geodon) Allergy Mild Hives Verified 04/02/25 09:35 Sulfa (Sulfonamide Allergy Verified 04/02/25 09:35 Antibiotics) gabapentin AdvReac Severe memory loss Verified 04/02/25 09:35 NSAIDS (Non-Steroidal AdvReac Mild Verified 04/02/25 09:35 Anti-Inflamma Review of Systems Review of Systems ROS Unobtainable: All systems reviewed & are unremarkable except as noted in HPI and below Cardiovascular Cardiovascular: Reports as per HPI Musculoskeletal Musculoskeletal: Reports as per HPI Patient History Medical History (Updated 04/23/25 @ 19:52 by Derek Mejía MD) Primary osteoarthritis of both knees Opiate dependence Obesity (BMI 30.0-34.9) Bipolar disorder Treatment-resistant depression Perimenopausal Jann-Danlos disease Gastric reflux Hormone replacement therapy (HRT) Asthma exacerbation Chronic fatigue Adverse drug effect Vesicular palmoplantar eczema Carpal tunnel syndrome on both sides Pre-diabetes Vasomotor symptoms due to menopause Chronic pain syndrome Skin flap infection Excessive skin and subcutaneous tissue Complications of gastric bypass surgery Hyper reflexia Depression with anxiety Fibromyalgia Vitamin E deficiency Other dietary vitamin B12 deficiency anemia Painful menstrual periods IUD (intrauterine device) in place Breast mass in female Chronic back pain Well woman exam [facility] Preventative health care Right knee pain Right shoulder pain Right elbow pain Rash Surgical History (Updated 07/23/24 @ 13:03 by Lon Benito DO) Status post sleeve gastrectomy History of gastric bypass Social History alcohol intake: current Smoking Status: Never smoker alcohol intake frequency: a few times a month Exam Narrative Exam Narrative: General: Alert and conversant. No distress. Appears well nourished and well hydrated Craniofacial: No evidence of trauma. Nontender and no swelling. Lungs: Clear to auscultation with good air movement. No wheezing, rales or rhonchi. No respiratory distress Cardiac: Regular rate and rhythm with no appreciable murmur or gallop Abdomen: Soft, nontender with no distention or masses. Normal bowel sounds. No rebound or guarding Musculoskeletal: Mild tenderness of the right lower leg laterally. No calf tenderness to compression. No swelling or asymmetry compared to the left calf. No bony tenderness. Otherwise Exam of the extremities, axial spine and ribcage reveals no deformity, bony tenderness or swelling. Range of motion intact Neuro: Alert and oriented. Cranial nerves, motor, sensory and cerebellar all grossly intact. No focal deficit Skin: Warm and normal color. No rashes Psychological: Normal affect and interaction. No evidence of delusion or psychosis. Normal mood. Initial Vital Signs Initial Vital Signs: Vital Signs Temperature 97.7 F 04/23/25 16:44 Pulse Rate 105 H 04/23/25 16:44 Respiratory Rate 18 04/23/25 16:44 Blood Pressure 123/69 04/23/25 16:44 Pulse Oximetry 100 04/23/25 16:44 Oxygen Delivery Method Room Air 04/23/25 16:44 Course Orders Ordered: ED Orders 04/23/25 16:51 EKG-12 Lead Stat 04/23/25 17:05 EKG-12 Lead Routine 04/23/25 17:10 XR chest 1V Stat 04/23/25 17:18 Complete Blood Count AUTO DIFF Stat Comprehensive Metabolic Panel Stat Lipase Stat Magnesium Stat NT-proBNP (BNP-Adult 18+) Stat PTT Partial Thromboplastin Luis Stat Prothrombin Time INR Stat Troponin & CK Cardiac Panel Stat Discontinued Medications Aspirin (Aspirin 81 Mg Chew Tab) 324 mg PO NOW ONE Stop: 04/23/25 17:11 Last Admin: 04/23/25 17:31 Dose: 324 mg Documented By: SONIA Vital Signs Vital signs: Vital Signs - 8 hr 04/23/25 16:44 04/23/25 18:29 04/23/25 18:30 Temperature 97.7 F Pulse Rate 105 H 81 85 Respiratory Rate 18 Blood Pressure 123/69 Pulse Oximetry 100 100 100 Oxygen Delivery Method Room Air 04/23/25 18:30 04/23/25 19:56 04/23/25 19:57 Temperature Pulse Rate 82 Respiratory Rate Blood Pressure 128/81 131/65 Pulse Oximetry 100 Oxygen Delivery Method 04/23/25 19:57 Temperature Pulse Rate 80 Respiratory Rate Blood Pressure Pulse Oximetry 100 Oxygen Delivery Method MDM - Chest Pain Differential Diagnosis Differential diagnosis: Likely pneumothorax, stable angina, unstable angina pectoris, atypical chest pain, st elevation myocardial infarction, costochondritis and chest pain Medical Records Data Attestation: I reviewed the patient's medical records. Lab Data Attestation: I reviewed the patient's lab results. Lab results narrative: CBC and CMP essentially unremarkable other than CK 200 04/23/25 17:18 04/23/25 17:18 Labs: Lab Results 04/23/25 Range/Units 17:18 WBC 7.9 (4.5-11.0) X10^3/uL RBC 4.63 (4.0-5.2) X10^6/uL Hgb 13.0 (12.0-16.0) g/dL Hct 38.5 (36-46) % MCV 83.1 (80-100) fL MCH 28.2 (26-34) PG MCHC 33.9 (30-36) % RDW 13.9 (11.6-14.8) % Plt Count 352 (150-400) X10^3/uL Neut % (Auto) 63.7 (50-75) % Lymph % (Auto) 24.5 L (25-40) % [place] % (Auto) 8.6 (3-14) % Eos % (Auto) 2.8 (2-4) % Baso % (Auto) 0.4 (0-2) % Neut # (Auto) 5000 (4728-0527) /uL Lymph # (Auto) 1900 (4526-7595) /uL [place] # (Auto) 700 (0-900) /uL Eos # (Auto) 200 (0-450) /uL Baso # (Auto) 0 (0-100) /uL PT 10.7 (9.4-12.5) SECONDS INR 0.9 (0.9-1.3) APTT 38 H (25.1-36.5) SECONDS Sodium 140 (137-145) mmol/L Potassium 3.7 (3.4-5.1) mmol/L Chloride 105 (98-107) mmol/L Carbon Dioxide 26 (22-32) mmol/L BUN 13 (7-17) mg/dL Creatinine 0.75 (0.52-1.04) mg/dL Estimated GFR > 60 (>60) mL/min BUN/Creatinine Ratio 17.3 (6-22) Glucose 72 (70-99) mg/dL Calcium 9.2 (8.4-10.2) mg/dL Magnesium 2.3 (1.6-2.3) mg/dL Total Bilirubin 0.4 (0.2-1.3) mg/dL AST 26 (14-36) IU/L ALT 17 (<35) IU/L Alkaline Phosphatase 71 (38-126) U/L Total Creatine Kinase 200 H (30-135) U/L Troponin I < 0.012 (0.01-0.034) ng/mL NT-Pro-B Natriuret Pep 66 (<125) pg/mL Total Protein 8.4 H (6.3-8.2) g/dL Albumin 4.9 (3.5-5.0) g/dL Globulin 3.5 (1.7-4.1) g/dL Albumin/Globulin Ratio 1.4 (1.0-2.8) Lipase 85 (23-300) U/L Imaging Data Chest x-ray: Attestation: I personally reviewed and interpreted this imaging study as follows: (Unremarkable. No acute disease on chest x-ray) ECG Data Attestation: I personally reviewed and interpreted this ECG as follows: (Sinus rhythm. Rate 80. [place] and intervals unremarkable and normal. No ischemic changes) MDM Narrative Medical decision making narrative: Her primary complaint was right lower leg discomfort which does not appear to be vascular. I do not believe she needs workup for DVT given the history and physical exam. This appears to be a neuropathic source of pain possibly from a peroneal nerve irritation but has now nearly resolved. In addition she had palpitations and atypical chest pain earlier today at the urgent care. Her EKG, troponin and chest x-ray are unremarkable and reassuring. I do not believe her chest symptoms or cardiac or pulmonary. She is now asymptomatic and feels better. She is discharged home with instructions to monitor symptoms and follow up closely with her provider within the next 2 days. Return to the ER if worse Discharge Plan Departure Patient Disposition: Home Clinical Impression: Atypical chest pain, Palpitations, Lower extremity pain, lateral Instructions: DI for Atypical Chest Pain, Neuropathic Pain, DI for Palpitations Activity Restrictions/Additional Instructions: Assessment: 1. Atypical sharp chest pain resolved with negative cardiac tests. Does not appear to be cardiac. 2. Transient palpitations now resolved 3. Lateral lower leg pain which appears to be neuropathic/neurogenic. Plan: Hydration, rest and supportive care with monitoring symptoms. Contact your doctor tomorrow for close follow-up to address all of the symptoms. Return to the ER if worse Prescriptions: No Action (DME) Nebulizer See Rx Instructions .Route .MEDSUPPLY Qty: 1 0RF Rx Instructions: Nebulizer with tubing and mask Length of need- 99 montelukast 10 mg tablet See Rx Instructions .ROUTE .COMPLEX Qty: 90 3RF Dose Instruction: Take 1 tablet by mouth at bedtime daily for suppression therapy. Rx Instructions: Take 1 tablet by mouth at bedtime daily for suppression therapy. omeprazole 20 mg capsule,delayed release(DR/EC) 20 mg PO BID Qty: 180 3RF fluticasone propion-salmeterol [Advair Diskus] 250-50 mcg/dose blister with device 2 inh INHALATION BID 90 Days Qty: 60 3RF Rx Instructions: Inhale 2 inhalations twice daily for asthma. ipratropium-albuterol 0.5 mg-3 mg(2.5 mg base)/3 mL solution for nebulization 3 ml inhalation Q4-6H PRN (Reason: shortness of breath) Qty: 180 5RF acyclovir 400 mg tablet 400 mg PO DAILY Qty: 90 3RF Rx Instructions: Take 1 tab daily supressive therapy. ondansetron 8 mg tablet,disintegrating 8 mg PO Q8H PRN (Reason: nausea and vomiting) Qty: 60 4RF estradiol 10 mcg tablet See Rx Instructions .ROUTE .COMPLEX Qty: 48 3RF Rx Instructions: Insert vaginally at bedtime daily after intercourse x14 days, then 2-3 times per week thereafter for bladder symptoms; Savella 50 mg tablet 50 mg PO BID Qty: 60 0RF Rx Instructions: start after starter dose naltrexone 50 mg tablet 4.5 mg PO DAILY Qty: 30 11RF Rx Instructions: low dose naltrexone. ok to compound acetaminophen [Tylenol Extra Strength] 500 mg tablet 1,000 mg PO QID PRN (Reason: pain) lisdexamfetamine [Vyvanse] 70 mg capsule 70 mg PO QAM Mirena IUD vaginal Rx Instructions: Mirena IUD placed in 05/2021 meloxicam 15 mg tablet See Rx Instructions .ROUTE .COMPLEX Qty: 90 3RF Dose Instruction: TAKE ONE TABLET BY MOUTH ONE TIME DAILY FOR PAIN Rx Instructions: TAKE ONE TABLET BY MOUTH ONE TIME DAILY FOR PAIN lamotrigine 100 mg tablet 200 mg PO DAILY pregabalin [Lyrica] 75 mg capsule 75 mg PO BID Qty: 60 5RF cyclobenzaprine 10 mg tablet 5 - 10 mg PO BEDTIME PRN (Reason: muscle spasm) Qty: 30 11RF hydrocodone-acetaminophen 10-325 mg tablet 1 tab PO BID PRN (Reason: pain) Qty: 60 0RF Rx Instructions: rx 1/3 hydrocodone-acetaminophen 10-325 mg tablet 1 tab PO BID PRN (Reason: pain) Qty: 60 0RF Rx Instructions: rx 2/3 hydrocodone-acetaminophen 10-325 mg tablet 1 tab PO BID PRN (Reason: pain) Qty: 60 0RF Rx Instructions: rx 3/3 albuterol sulfate 90 mcg/actuation HFA aerosol inhaler See Rx Instructions .ROUTE .COMPLEX Qty: 8.5 11RF Dose Instruction: INHALE TWO PUFFS BY MOUTH EVERY FOUR TO SIX HOURS NEEDED FOR SHORTNESS OF BREATH OR WHEEZING Rx Instructions: INHALE TWO PUFFS BY MOUTH EVERY FOUR TO SIX HOURS NEEDED FOR SHORTNESS OF BREATH OR WHEEZING phenazopyridine [Pyridium] 100 mg tablet 100 mg PO Q8H PRN (Reason: pain) Qty: 6 5RF Rx Instructions: can use for 2 days, then stop. repeat as needed. bupropion HCl 150 mg tablet extended release 24 hr 150 mg PO QAM low dose naltrexone 4.5 mg PO .HS Qty: 90 3RF lidocaine 4 % cream 1 applic topical QID PRN (Reason: pain) Qty: 15 0RF Referrals: Lon Benito DO [Primary Care Provider, Family Practice] Stand Alone Forms: Patient Portal/API
[2025-04-23 17:59] LABS: NT-proBNP (BNP-Adult 18+) 66 pg/mL (<125); Troponin I < 0.012 ng/mL (0.01-0.034)
[2025-04-23 18:29] VITALS: PULSE 81; O2SAT 100
[2025-04-23 18:30] VITALS: BP 128/81; PULSE 85; O2SAT 100
[2025-04-23 19:56] VITALS: PULSE 82; O2SAT 100
[2025-04-23 19:57] VITALS: BP 131/65; PULSE 80; O2SAT 100
== END 2025-04-23 20:05 | disposition home or self-care (01) ==
PROVIDERS: Emergency Provider Emergency Medicine; PCP Family Medicine
DX: R07.89 Other chest pain (principal); R00.2 Palpitations; M79.605 Pain in left leg; M79.604 Pain in right leg
CPT/HCPCS: 36415; 71045; 80053; 82550; 83690; 83735; 83880; 84484; 85025; 85610; 85730; 93005; 99284